=== PATIENT | female | born 1980 | race Caucasian/White ===

== ENCOUNTER 2018-01-22 06:02 | Observation (INO) | payer OTHER ==
[~2018-01-22 06:02] MED LIST: Buffered Lidocaine 0.9% SYRIN* 5 ML/SYR SYRINGE INTRADERM ONE; Dexamethasone TAB* 4 MG PO ONE; DiMENhydriNATE IV* 50 MG/ML VIAL IV PUSH PRN; Famotidine IV* 10 MG/ML 2 ML (20 mg) IV ONE; Gentamicin ADULT (*) 150 MG in NS 0.9% 100 ML* 100 ML IVPB SCH; Morphine INJ* 2 MG/ML 1 ML SYRINGE (TWO MG - NEW SYRINGE VERSION) IV PRN; Naloxone* 0.4 MG/ML 1 ML VIAL IV PRN; Ondansetron TAB* 4 MG PO ONE; PROCHLORPERAZINE INJ 5 MG/ML 2 ML VIAL IV PRN; Scopolamine 1.5 mg* PATCH TRANSDERM ONE; fentaNYL* 50 MCG/ML 2 ML VIAL (100 MCG VIAL) IV PRN; oxyCODONE/Acetamin 5/325 MG* TAB PO PRN
--- OUTSIDE RECORDS SUMMARY | 2018-01-22 06:06 | XMS REPORT ---
:1980 External Reference #:[id number] Author Organization [employer] Address [address] [place] [address] [place] [address] Phone [phone] Care Team Providers Name Role Phone Felix Christianson MD Primary Care Physician Unavailable Payers Type Date Identification Numbers Payment Provider Subscriber Commercial Effective: Policy Number: [id number] [employer] Celeste Munoz 2015 Medicaid Group Name: [id number] [address] [address] PayID: [id number] [place] [address] Medigap Part B Expires: 2015 Policy Number: [id number] Medicaid Celeste Munoz Group Name: 1 1 [address] PayID: [id number] [place] [address] Advance Directives Type Date Description Status Comment Other Directive 11/27/2017 Health Care Proxy Current and Verified Problems Date Description Provider Status Onset: 06/19/2015 Uterine leiomyoma Felix Christianson M.D.,FACP Active Onset: 06/19/2015 Hypothyroidism Felix Christianson M.D.,FACP Active Onset: 07/28/2015 Mixed hyperlipidemia Felix Christianson M.D.,FACP Active Onset: 08/18/2015 Dyssomnia Melonie Shah DNP, RN, Active 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 Onset: 08/18/2015 Snoring Melonie Shah DNP, RN, Active [employer]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 Onset: 08/18/2015 Periodic leg movements of sleep Melonie Shah DNP, RN, Active [employer]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 Quit 6 years ago. 2011 Recreational Drug Use Denies Drug Use Daily Caffeine Very rarely ; drinks water mostly Exercise Type/Frequency Exercises regularly General Hx Text 2 children Allergies, Adverse Reactions, Alerts Date Description Reaction Status Severity Comments 06/19/2015 Penicillin active hives, itchy, and trouble swallowing Medications Medication Date Status Form Strength Qnty SIG Indications Ordering Provider Lupron Depot 12/31 Active Kit 3.75mg 1unit one vial Daniel (1-Month) /2018 s intramuscular D. kim Cason M.D. Ferrous 11/25 Active Tablets 325(65Fe) 60tab take 1 tablet Delio Sulfate /2017 mg s twice daily. DEVON Herring Sumatriptan 11/10 Active Tablets 50mg 9tabs take one G43.109 Delio Succinate /2017 tablet at DEVON Herring onset of headache. if no relief you can take a second tab 2 hours later. no more than 4 times a month Wrist 02/12 Active Misc QS use on right G56.01 Zsofia Brace/Suede /2016 wrist at night Joe, Finish/Right/ [employer] PROCESSING SUPERVISOR Medium Wrist 07/27 Active Misc 1unit for carpal Felix Splint/Neopre /2016 s tunnel D. Meghan ne/Right/Larg syndrome Ewa.Nasreen,FACP e No Active 11/10 Hx Unknown Medications /2017 - 11/10 Diclofenac 01/07 Hx Solution 1.5% 150ml apply 15 drops M25.539 Zsofia Sodium to wrist 2x Joe, - daily as PHOS[employer] PROCESSING SUPERVISOR 11/10 needed for pain No Active 01/01 Hx Unknown Medications /2016 - 01/01 Diclofenac 01/01 Hx Gel 1% 100gm apply 1 grams M25.539 Zsofia Sodium on hands twice Joe, - daily [employer] PROCESSING SUPERVISOR 01/07 Miralax 07/27 Hx Powder 3350NF 510un 17 gm every its day mixed w/ 8 Nasreen Christianson, - oz water/juice M.Nasreen,[facility] 12/31 Fluticasone 07/27 Hx Suspension 50mcg/Act 16gm 1 spray each Felix Propionate nostril in in Nasreen Christianson, - the morning M.Nasreen,[facility] 12/31 Cetirizine 07/27 Hx Tablets 10mg 30tab 1 by mouth Felix HCL /2015 s every day prn Nasreen Christianson, - M.Nasreen,[facility] 12/[address] 20mg 30cap 1 by mouth K29.60 Felix s every day for Nasreen Christianson, - 1 month then Nati,[facility] 12/31 as directed Progesterone 00 Hx Capsules 100mg 1 by mouth Unknown Micronized /0000 every day - Nona 00 Hx Tablets 0.35mg Thien, /0000 Glenis, - 12/31 Nona 0000 Hx Tablets 0.35mg 1 by mouth Unknown /0000 every day - 12/30 Vital Signs Date Vital Result Comment 12/31/2017 Height 64 inches 5'4" Weight 226.00 lb Heart Rate 64 /min BP Systolic Sitting 138 mmHg lue lg cuff BP Diastolic Sitting 82 mmHg lue lg cuff BP Systolic Standing 140 mmHg BP Diastolic Standing 80 mmHg Respiratory Rate 16 /min BMI (Body Mass Index) 38.8 kg/m2 11/27/2017 Height 64 inches 5'4" Weight 225.00 lb Heart Rate 68 /min BP Systolic 128 mmHg BP Diastolic 87 mmHg Body Temperature 99.4 F O2 % BldC Oximetry 99 % BMI (Body Mass Index) 38.6 kg/m2 11/10/2017 Height 64 inches 5'4" Weight 229.75 lb Heart Rate 104 /min BP Systolic 120 mmHg BP Diastolic 74 mmHg Body Temperature 98.1 F O2 % BldC Oximetry 95 % BMI (Body Mass Index) 39.4 kg/m2 03/26/2017 Height 64 inches 5'4" Weight 225.50 lb Heart Rate 82 /min BP Systolic Sitting 138 mmHg BP Diastolic Sitting 80 mmHg Respiratory Rate 14 /min Body Temperature 97.6 F O2 % BldC Oximetry 98 % BMI (Body Mass Index) 38.7 kg/m2 02/12/2017 Height 64 inches 5'4" Weight 218.00 lb Heart Rate 83 /min BP Systolic Sitting 154 mmHg BP Diastolic Sitting 88 mmHg Body Temperature 97.5 F O2 % BldC Oximetry 98 % BMI (Body Mass Index) 37.4 kg/m2 01/01/2017 Height 64 inches 5'4" Weight 214.00 lb Heart Rate 72 /min BP Systolic Sitting 138 mmHg BP Diastolic Sitting 84 mmHg Respiratory Rate 14 /min Body Temperature 98.0 F Pain Level 9 bilateral wrist R>L BMI (Body Mass Index) 36.7 kg/m2 08/18/2015 Height 64 inches 5'4" Weight 216.38 lb Heart Rate 69 /min BP Systolic Sitting 136 mmHg BP Diastolic Sitting 78 mmHg O2 % BldC Oximetry 98 % BMI (Body Mass Index) 37.1 kg/m2 Neck Circumference in inches 15.25 07/28/2015 Height 62.5 inches 5'2.50" Weight 222.00 lb Heart Rate 98 /min BP Systolic Sitting 132 mmHg BP Diastolic Sitting 86 mmHg Body Temperature 97.2 F O2 % BldC Oximetry 97 % BMI (Body Mass Index) 40.0 kg/m2 07/19/2015 Height 62.5 inches 5'2.50" Weight 221.00 lb Heart Rate 104 /min BP Systolic Sitting 122 mmHg BP Diastolic Sitting 80 mmHg Body Temperature 97.3 F O2 % BldC Oximetry 96 % BMI (Body Mass Index) 39.8 kg/m2 06/19/2015 Height 62.5 inches 5'2.50" Weight 214.50 lb Heart Rate 120 /min Body Temperature 97.4 F O2 % BldC Oximetry 98 % BMI (Body Mass Index) 38.6 kg/m2 Results Test Date Test Result H/L Range Note Laboratory test 11/24/2017 Cytology SEE RESULT BELOW 1 finding CBC Auto Diff 11/14/2017 White Blood Count 6.5 10^3/uL 3.5-10.8 Red Blood Count 4.74 10^6/uL 4.00-5.40 Hemoglobin 10.1 g/dL Low 12.0-16.0 Hematocrit 33 % Low 35-47 Mean Corpuscular Volume 69 fL Low 80-97 Mean Corpuscular Hemoglobin 21 pg Low 27-31 Mean Corpuscular HGB Conc 31 g/dL 31-36 Red Cell Distribution Width 16 % High 10.5-15 Platelet Count 332 10^3/uL 150-450 Mean Platelet Volume 8.1 um3 7.4-10.4 Abs Neutrophils 3.7 10^3/uL 1.5-7.7 Abs Lymphocytes 2.1 10^3/uL 1.0-4.8 Abs Monocytes 0.5 10^3/uL 0-0.8 Abs Eosinophils 0.2 10^3/uL 0-0.6 Abs Basophils 0 10^3/uL 0-0.2 Abs Nucleated RBC 0 10^3/uL Granulocyte % 56.5 % 38-83 Lymphocyte % 32.7 % 25-47 Monocyte % 7.9 % High 0-7 Eosinophil % 2.4 % 0-6 Basophil % 0.5 % 0-2 Nucleated Red Blood Cells % 0 Comp Metabolic Panel 11/14/2017 Sodium 137 mmol/L 135-145 Potassium 4.4 mmol/L 3.5-5.0 Chloride 105 mmol/L 101-111 Co2 Carbon Dioxide 25 mmol/L 22-32 Anion Gap 7 mmol/L 2-11 Glucose 96 mg/dL 70-100 Blood Urea Nitrogen 9 mg/dL 6-24 Creatinine 0.66 mg/dL 0.51-0.95 BUN/Creatinine Ratio 13.6 8-20 Calcium 8.8 mg/dL 8.6-10.3 Total Protein 6.5 g/dL 6.4-8.9 Albumin 4.0 g/dL 3.2-5.2 Globulin 2.5 g/dL 2-4 Albumin/Globulin Ratio 1.6 1-3 Total Bilirubin 0.30 mg/dL 0.2-1.0 Alkaline Phosphatase 61 U/L 34-104 Alt 16 U/L 7-52 Ast 17 U/L 13-39 Egfr Non- 101.9 >60 Egfr 123.3 >60 2 Laboratory test finding 11/14/2017 Ferritin 4.0 ng/mL Low 11-307 Magnesium 2.0 mg/dL 1.9-2.7 TSH (Thyroid Stim Horm) 6.03 mcIU/mL High 0.34-5.60 Vitamin B12 310 pg/mL 180-914 3 D Dimer Quantitative < 200 ng/mL Less Than 230 4 Cell Morphology 11/14/2017 Microcytosis 2+ Hypochromasia 1+ Laboratory test finding 11/14/2017 Free T4 (Free Thyroxine) 0.72 ng/dL 0.61-1.12 T3 Total 104 ng/dL 87-178 Pathologist Review (SEE NOTE) 5 Iron & Iron Binding Capacity 11/14/2017 Iron 22 g/dL Low 50-212 Unsaturated Iron Binding 475 g/dL Total Iron Binding Capacity 497 g/dL High 250-450 Transferrin 355 mg/dL 203-362 % Iron Saturation 4 % Low 15-55 CBC Auto Diff 02/13/2017 White Blood Count 5.9 10^3/uL 3.5-10.8 Red Blood Count 4.61 10^6/uL 4.0-5.4 Hemoglobin 11.6 g/dL Low 12.0-16.0 Hematocrit 36 % 35-47 Mean Corpuscular Volume 78 fL Low 80-97 Mean Corpuscular Hemoglobin 25 pg Low 27-31 Mean Corpuscular HGB Conc 32 g/dL 31-36 Red Cell Distribution Width 16 % High 10.5-15 Platelet Count 297 10^3/uL 150-450 Mean Platelet Volume 8 um3 7.4-10.4 Abs Neutrophils 3.4 10^3/uL 1.5-7.7 Abs Lymphocytes 2.0 10^3/uL 1.0-4.8 Abs Monocytes 0.4 10^3/uL 0-0.8 Abs Eosinophils 0.2 10^3/uL 0-0.6 Abs Basophils 0 10^3/uL 0-0.2 Abs Nucleated RBC 0.01 10^3/uL Granulocyte % 57.3 % 38-83 Lymphocyte % 32.9 % 25-47 Monocyte % 6.7 % 1-9 Eosinophil % 2.7 % 0-6 Basophil % 0.4 % 0-2 Nucleated Red Blood Cells % 0.1 Laboratory test finding 02/13/2017 TSH (Thyroid Stim Horm) 3.48 mcIU/mL 0.34-5.60 6 Comp Metabolic Panel 02/13/2017 Sodium 136 mmol/L 133-145 Potassium 4.3 mmol/L 3.5-5.0 Chloride 104 mmol/L 101-111 Co2 Carbon Dioxide 27 mmol/L 22-32 Anion Gap 5 mmol/L 2-11 Glucose 89 mg/dL 70-100 Blood Urea Nitrogen 10 mg/dL 6-24 Creatinine 0.71 mg/dL 0.51-0.95 BUN/Creatinine Ratio 14.1 8-20 Calcium 8.9 mg/dL 8.6-10.3 Total Protein 6.7 g/dL 6.4-8.9 Albumin 3.9 g/dL 3.2-5.2 Globulin 2.8 g/dL 2-4 Albumin/Globulin Ratio 1.4 1-3 Total Bilirubin 0.30 mg/dL 0.2-1.0 Alkaline Phosphatase 49 U/L 34-104 Alt 17 U/L 7-52 Ast 19 U/L 13-39 Egfr Non- 93.7 >60 Egfr 120.5 >60 7 Lipid Profile (Trig/Chol/HDL) 02/13/2017 Triglycerides 175 mg/dL 8 Cholesterol 183 mg/dL 9 HDL Cholesterol 34.9 mg/dL 10 LDL Cholesterol 113 mg/dL 11 Laboratory test finding 06/21/2015 TSH (Thyroid Stimulating 3.23 ?IU/mL 0.34-5.60 12 Horm) Free T4 0.89 ng/dL 0.61-1.12 13 CBC Auto Diff 06/21/2015 White Blood Count 7.1 10^3/uL 3.5-10.8 Red Blood Count 4.97 10^6/uL 4.0-5.4 Hemoglobin 13.0 g/dL 12.0-16.0 Hematocrit 41 % 35-47 Mean Corpuscular Volume 82 fL 80-97 Mean Corpuscular Hemoglobin 26 pg Low 27-31 Mean Corpuscular HGB Conc 32 g/dL 31-36 Red Cell Distribution Width 16 % High 10.5-15 Platelet Count 295 10^3/uL 150-450 Mean Platelet Volume 8 um3 7.4-10.4 Abs Neutrophils 4.4 10^3/uL 1.5-7.7 Abs Lymphocytes 2.0 10^3/uL 1.0-4.8 Abs Monocytes 0.4 10^3/uL 0-0.8 Abs Eosinophils 0.2 10^3/uL 0-0.6 Abs Basophils 0 10^3/uL 0-0.2 Abs Nucleated RBC 0.01 10^3/uL Granulocyte % 62.2 % 38-83 Lymphocyte % 28.4 % 25-47 Monocyte % 5.9 % 1-9 Eosinophil % 3.1 % 0-6 Basophil % 0.4 % 0-2 Nucleated Red Blood Cells % 0.1 Basic Metabolic Panel 06/21/2015 Sodium 136 mmol/L 133-145 Potassium 4.4 mmol/L 3.5-5.0 Chloride 104 mmol/L 101-111 Co2 Carbon Dioxide 24 mmol/L 22-32 Anion Gap 8 mmol/L 2-11 Glucose 87 mg/dL 70-100 Blood Urea Nitrogen 7 mg/dL 6-24 Creatinine 0.79 mg/dL 0.51-0.95 BUN/Creatinine Ratio 8.9 8-20 Calcium 9.3 mg/dL 8.6-10.3 Egfr Non- 83.8 >60 Egfr 107.8 >60 14 Lipid Profile (Trig/Chol/HDL) 06/21/2015 Triglycerides 175 mg/dL 15 Cholesterol 216 mg/dL 16 HDL Cholesterol 29.9 mg/dL 17 LDL Cholesterol 151 mg/dL 18 1 SEE RESULT BELOW Name: CELESTE MUNOZ : [address]: Glenis Neumann MD Acct: [id number] Unit: [id number] AGE: 36 Location: [facility] Re11/24/17 SEX: F Status: REG REF SPEC: [id number] MARISOL: 11/24/17 [facility] DR: Glenis Neumann MD REQ: [id number] RECD: 11/24/17 STATUS: [facility] STEPHEN[facility] DR: Felix Christianson MD _ ORDERED: TP IMAGE ANALYS, HPV/Thin Prep COMMENTS: [id number] Negative for Intraepithelial lesion or Malignancy Date Time Test Result Flag (u) Normal Range 11/24/17 0928 @ HPV RNA Negative Negative @ @ The high-risk HPV types detected by the assay include: 16, @ 18, 31, 33, 35, 39, 45, 51, 52, 56, 58, 59, 66, and 68. A. Ectocervical/Endocervical Specimen Adequacy: Satisfactory of evaluation Transformation zone component identified Patient Information: HPV: High risk HPV RNA testing regardless of pap results. Actual Specimen Date: 11/24/17 Last Menstrual Date: 10/26/17 Date of Last Specimen: 05/03/15 Signed by and Reported on: ROZINA Bay(ASCP) [id number] This Pap test was evaluated with the assistance of the ThinPrep Test Imaging System. Due to cytologic findings at the rn discharge microscope, comprehensive manual rescreening by a Boat [employer] may be required. The Pap Smear is a screening test designed to aid in the detection of premalignant and malignant conditions of the uterine cervix. It is not a diagnostic procedure and should not be used as the sole means of detecting cervical cancer. Both false- positive and false- negative reports do occur. Depending on your risk status, a Pap smear should be obtained and evaluated every 1-3 years. END OF REPORT DEPARTMENT OF PATHOLOGY, [address] [place] [address] Vivek Escobar M.D. Director [facility] # [id number] 2 Because ethnic data is not always readily available, this report includes an eGFR for both -Americans and non- Americans. The National Kidney Disease Education Program (NKDEP) does not endorse the use of the MDRD equation for patients that are not between the ages of 18 and 70, are , have extremes of body size, muscle mass, or nutritional status, or are non- or non-. According to the National Kidney Foundation, irrespective of diagnosis, the stage of the disease is based on the level of kidney function: Stage Description GFR(mL/min/1.73 m(2)) 1 Kidney damage with normal or decreased GFR 90 2 Kidney damage with mild decrease in GFR 60-89 3 Moderate decrease in GFR 30-59 4 Severe decrease in GFR 15-29 5 Kidney failure <15 (or dialysis) 3 Normal Range 180 to 914 Indeterminate Range 145 to 180 Deficient Range <145 4 Please note: The following may produce a false positive D Dimer test: - Rheumatoid factor greater than 60 IU/ml - Plasma hemoglobin greater than 0.05 gm/dl - Bilirubin greater than 50 mg/dl - Lipids greater than 1000 mg/dl - FDP greater than 20 ug/ml 5 Microcytic anemia with red cell indices suggestive of iron deficiency noted. Additional studies is warranted. Reviewed by Dr. Escobar 6 FASTING 10 HOUR 7 Because ethnic data is not always readily available, this report includes an eGFR for both -Americans and non- Americans. The National Kidney Disease Education Program (NKDEP) does not endorse the use of the MDRD equation for patients that are not between the ages of 18 and 70, are , have extremes of body size, muscle mass, or nutritional status, or are non- or non-. According to the National Kidney Foundation, irrespective of diagnosis, the stage of the disease is based on the level of kidney function: Stage Description GFR(mL/min/1.73 m(2)) 1 Kidney damage with normal or decreased GFR 90 2 Kidney damage with mild decrease in GFR 60-89 3 Moderate decrease in GFR 30-59 4 Severe decrease in GFR 15-29 5 Kidney failure <15 (or dialysis) 8 Desirable: <150 Borderline High: 150-199 High: 200-499 Very High: >500 9 Desirable: <200 Borderline High: 200-239 High: >239 10 Low: <40 Desirable: 40-60 High: >60 11 Desirable: <100 Near Optimal: 100-129 Borderline High: 130-159 High: 160-189 Very High: >189 12 FASTING 10 HOUR Copy Result to: GLENIS NEUMANN ([id number]) 13 FASTING 10 HOUR Copy Result to: GLENIS NEUMANN ([id number]) 14 Because ethnic data is not always readily available, this report includes an eGFR for both -Americans and non- Americans. The National Kidney Disease Education Program (NKDEP) does not endorse the use of the MDRD equation for patients that are not between the ages of 18 and 70, are , have extremes of body size, muscle mass, or nutritional status, or are non- or non-. According to the National Kidney Foundation, irrespective of diagnosis, the stage of the disease is based on the level of kidney function: Stage Description GFR(mL/min/1.73 m(2)) 1 Kidney damage with normal or decreased GFR 90 2 Kidney damage with mild decrease in GFR 60-89 3 Moderate decrease in GFR 30-59 4 Severe decrease in GFR 15-29 5 Kidney failure <15 (or dialysis) 15 Desirable <150 Borderline high 150-199 High 200-499 Very High >500 16 Desirable <200 Borderline high 200-239 High >239 17 Low <40 Desirable: 40-60 High: >60 18 Desirable: <100 mg/dL Near Optimal: 100-129 mg/dL Borderline High: 130-159 mg/dL High: 160-189 mg/dL Very High: >189 mg/dL Procedures Date CPT Code Description Status 12/31/2017 49610 EKG Tracing & Interpretation Completed 11/10/2017 82162 EKG Tracing & Interpretation Completed Encounters Type Date Location Provider CPT E/M Dx Office Visit 12/31/2017 [facility] Daniel Cason, [address] R07.9 10:00a Jason Damian R00.2 Office Visit 11/27/2017 9:20a [facility] [place] [address] D50.9 [place] R07.9 E53.8 Office Visit 11/10/2017 4:00p [facility] [place] [address] G43.109 [place] R25.2 R07.9 Office Visit 03/26/2017 10:00a [facility] Internal Medicine - [place] Diaz, [place] [address] M25.531 Office Visit 02/12/2017 9:40a [facility] Medicine Tem[place] Diaz, [place] [address] Z00.01 - [address] Z13.220 R53.83 N92.0 G56.01 M54.5 E66.9 Z00.00 Office Visit 01/01/2017 2:20p [facility] Medicine [place] [address] M25.[address] - [address] M54.2 M25.511 G56.00 M25.531 Office Visit 08/18/2015 11:15a [facility] Melonie Shah, [address] G47.9 Services Of [facility] CHELE RN, 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 at [facility]01/13/2018 9:00 am - Nurse Visit IC at [facility]01/12/2018 9:00 am - Nurse Visit IC at [facility]01/09/2018 8 :15 am - Daniel Cason M.D. at [facility]01/09/2018 7:45 am - Ica ECHO Schedule at [facility]12/31/2017 - Daniel Cason M.D.R07.9 Chest pain, unspecifiedNew Orders:Stress Test, Exercise EchocardiogramHolter MonitorFollow up:1 empdmO01.2 Palpitations
--- OUTSIDE RECORDS SUMMARY | 2018-01-22 06:06 | XMS REPORT ---
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 [facility] Address [address] [place] [address] Phone [phone] Care Team Providers Name Role Phone Apollo Christianson MD Primary Care Physician Unavailable Payers Type Date Identification Numbers Payment Provider Subscriber Commercial Policy Number: [id number] [facility] Celeste Santiago PayID: [id number] [address] [address] [place] [address] Problems Description No Information Family History Date Family Member(s) Problem(s) Comments Father Unknown Mother Thyroid Disease Mother Anxiety Children 2 First Son A&W First Daughter A&W Siblings 1 First Brother A&W Paternal Grandfather due to Unknown Causes () Paternal Grandmother due to Unknown Causes () Maternal Grandfather Heart Disease Maternal Grandmother due to Unknown Causes () Social History Type Date Description Comments Education Highest level completed, 9th grade Marital Status Engaged Lives With Son Lives With Daughter Lives With Fiance Diet Healthy, Well Balanced Occupation Unemployed Cigarette Use Former Cigarette Smoker 1-5 Cigarettes Daily X5 years ETOH Use Occasionally consumes alcohol Recreational Drug Use Denies Drug Use Smoking Patient is a former smoker Daily Caffeine Occ Coffee Exercise Type/Frequency Exercises regularly Seat Belt/Car Seat Always uses seat belt Currently Active Patient is currently sexually active Contraceptive Methods Current methods include tubal ligation STD's No STD History Allergies, Adverse Reactions, Alerts Date Description Reaction Status Severity Comments 05/03/2015 Penicillin active Medications Medication Date Status Form Strength Qnty SIG Indications Ordering Provider Lupron Depot 12/15/ Active Kit 11.25mg 1unit please Glenis (3-Month) 2018 s adminster shannan Neumann MD every 3 months. Iron / Active Tablets 325mg Unknown 0000 Vitamin B-12 / Active Tablets 500mcg Unknown 0000 Sub Stool / Active Capsules 100mg Unknown Softener 0000 No Active 11/24/ Hx Glenis Medications 2018 - Thien, 2017 Nona 11/24/ Hx Tablets 0.35mg 84tab 1 by mouth Glenis 2018 - s every day Thien 2017 Oxybutynin 03/20/ Hx Tablets ER 5mg 60tab 1 po daily Glenis Chloride ER 2015 - 24HR s Thien, 2016 No Active 05/03/ Hx Unknown Medications 2015 - 2015 Nona 05/03/ Hx Tablets 0.35mg 84tab Take 1 Tablet Glenis 2015 - By Mouth 1 Thien, 11/19/ Time Daily 2017 Omeprazole / Hx 20mg Unknown 0000 - 2016 Flonase / Hx Unknown Allergy 0000 - Relief 2016 Medications Administered in Office Medication Date Status Form Strength Qnty SIG Indications Ordering Provider PT SCRN Tbco Administered Injection Gelnis Id as Non User 018 MD Thien PT SCRN Tbco Administered Injection Glenis Id as Non User 018 MD Thien Immunizations CPT Code Status Date Vaccine Lot # [id number] Given 06/16/2015 Tetnus, Diptheria Toxoids And Acellular Pertussis, [id number] PT > 7Yrs Old Vital Signs Date Vital Result Comment 01/12/2018 BP Systolic 146 mmHg BP Diastolic 94 mmHg Heart Rate 72 /min Respiratory Rate 1 /min Height 62.5 inches 5'2.50" Weight 228.00 lb BMI (Body Mass Index) 41.0 kg/m2 Last Menstrual Period 6426084 5 Parity 2 12/09/2017 BP Systolic 138 mmHg BP Diastolic 92 mmHg Height 62.5 inches 5'2.50" Weight 226.00 lb BMI (Body Mass Index) 40.7 kg/m2 Last Menstrual Period 3743747 5 Parity 2 11/24/2017 BP Systolic 122 mmHg BP Diastolic 86 mmHg Height 62.5 inches 5'2.50" Weight 226.00 lb BMI (Body Mass Index) 40.7 kg/m2 Last Menstrual Period 5744101 5 Parity 2 07/12/2016 BP Systolic 140 mmHg BP Diastolic 90 mmHg Height 64 inches 5'4" Weight 205.00 lb BMI (Body Mass Index) 35.2 kg/m2 Last Menstrual Period 7215689 5 Parity 2 06/18/2016 BP Systolic 138 mmHg BP Diastolic 80 mmHg Height 64 inches 5'4" Weight 203.00 lb BMI (Body Mass Index) 34.8 kg/m2 Last Menstrual Period 6774426 5 Parity 2 05/28/2016 BP Systolic 126 mmHg BP Diastolic 80 mmHg Height 64 inches 5'4" Weight 207.00 lb BMI (Body Mass Index) 35.5 kg/m2 5 Parity 2 03/20/2016 BP Systolic 124 mmHg BP Diastolic 80 mmHg Height 64 inches 5'4" Weight 205.00 lb BMI (Body Mass Index) 35.2 kg/m2 Last Menstrual Period 6628325 5 Parity 2 09/04/2015 BP Systolic 122 mmHg BP Diastolic 76 mmHg Height 64 inches 5'4" Weight 216.00 lb BMI (Body Mass Index) 37.1 kg/m2 Last Menstrual Period 4452927 5 Parity 2 07/27/2015 BP Systolic 124 mmHg BP Diastolic 78 mmHg Height 64 inches 5'4" Weight 221.00 lb BMI (Body Mass Index) 37.9 kg/m2 Last Menstrual Period 2450852 5 Parity 2 06/29/2015 BP Systolic 148 mmHg BP Diastolic 92 mmHg Height 64 inches 5'4" Weight 221.00 lb BMI (Body Mass Index) 37.9 kg/m2 Last Menstrual Period 4131968 5 Parity 2 06/16/2015 BP Systolic 124 mmHg BP Diastolic 82 mmHg Height 64 inches 5'4" Weight 225.00 lb BMI (Body Mass Index) 38.6 kg/m2 Last Menstrual Period 9003600 5 Parity 2 05/03/2015 BP Systolic 122 mmHg BP Diastolic 84 mmHg Height 64 inches 5'4" Weight 219.00 lb BMI (Body Mass Index) 37.6 kg/m2 Last Menstrual Period 5855968 5 Parity 2 Results Test Date Test Result H/L Range Note Type And Screen 01/09/2018 Patient Blood Type A Positive Antibody Screen NEGATIVE CBC Auto Diff 01/09/2018 White Blood Count 7.8 10^3/uL 3.5-10.8 Red Blood Count 4.98 10^6/uL 4.00-5.40 Hemoglobin 13.0 g/dL 12.0-16.0 Hematocrit 40 % 35-47 Mean Corpuscular Volume 79 fL Low 80-97 Mean Corpuscular Hemoglobin 26 pg Low 27-31 Mean Corpuscular HGB Conc 33 g/dL 31-36 Red Cell Distribution Width 25 % High 10.5-15 Platelet Count 281 10^3/uL 150-450 Mean Platelet Volume 8.6 um3 7.4-10.4 Abs Neutrophils 4.6 10^3/uL 1.5-7.7 Abs Lymphocytes 2.5 10^3/uL 1.0-4.8 Abs Monocytes 0.5 10^3/uL 0-0.8 Abs Eosinophils 0.2 10^3/uL 0-0.6 Abs Basophils 0 10^3/uL 0-0.2 Abs Nucleated RBC 0 10^3/uL Granulocyte % 59.0 % 38-83 Lymphocyte % 31.6 % 25-47 Monocyte % 6.1 % 0-7 Eosinophil % 3.1 % 0-6 Basophil % 0.2 % 0-2 Nucleated Red Blood Cells % 0.1 Laboratory test 11/24/2017 Cytology SEE RESULT BELOW 1 finding GC/Chlamydia Dna 06/29/2015 Chlamydia trachomatis Negative Negative Probe Rna Neisseria gonorrhoeae (GC) Rna Negative Negative Laboratory test 06/29/2015 Culture Genital & SEE RESULT BELOW 2 finding Sensitivity CBC Auto Diff 06/21/2015 White Blood Count [...] Egfr Non- 83.8 >60 Egfr 107.8 >60 3 Lipid Profile (Trig/Chol/HDL) 06/21/2015 Triglycerides 175 mg/dL 4 Cholesterol 216 mg/dL 5 HDL Cholesterol 29.9 mg/dL 6 LDL Cholesterol 151 mg/dL 7 Laboratory test finding 06/21/2015 TSH (Thyroid Stimulating 3.23 ?IU/mL 0.34-5.60 8 Horm) Free T4 0.89 ng/dL 0.61-1.12 9 Laboratory test finding 05/03/2015 Surgical Pathology SEE RESULT BELOW 10 Laboratory test finding 05/03/2015 Cytology SEE RESULT BELOW 11 Human Papilloma Virus Rna Negative Negative 12 1 SEE RESULT BELOW Name: SIOBHANMeleCELESTE M : [address]: Glenis Neumann MD Acct: [id number] Unit: [id number] AGE: 36 Location: [facility] Re11/24/17 SEX: F Status: REG REF SPEC: [id number] MARISOL: 11/24/[address]: Glenis Neumann MD REQ: [id number] RECD: 11/24/17 STATUS: BENTON STEPHENSON DR: Felix Christianson MD _ ORDERED: TP IMAGE ANALYS, HPV/Thin Prep COMMENTS: [id number] Negative for Intraepithelial lesion or Malignancy Date [...] was evaluated with the assistance of the OnovativePrep Test Imaging System. Due to cytologic findings at the radiotelegraphist microscope, comprehensive manual rescreening by a Remedial Teacher may be required. The Pap Smear is [...] years. END OF REPORT DEPARTMENT OF PATHOLOGY, [address] [place] [address] Vivek Escobar M.D. Director [facility] # [id number] 2 SEE RESULT BELOW Name: CELESTE MUNOZ : [address]: Glenis Neumann MD Acct: [id number] Unit: [id number] AGE: 34 Location: [facility] Re06/29/15 SEX: F Status: REG REF SPEC: [id number] MARISOL: 06/29/15-[address] [facility] [address]: Glenis Neumann MD REQ: [id number] RECD: 06/29/15 STATUS: COMP _ SOURCE: VAGINAL SPDESC: ORDERED: Genital Culture Procedure Result Reported Site Genital Culture Final 07/01/15- 1329 ML Organism 1 PHILIP VAGINALIS - PRESUMPTIVE Quantity 2+ Organism 2 STREP GROUP B Quantity 1+ Susceptibility testing of penicillins and other B-lactams approved by FDA for treatment of Streptococcus pyogenes (Group A Strep) and Streptococcus agalactiae (Group B Strep) is not necessary for clinical purposes and need not be done routinely, since as with vancomycin, resistant strains have not been recognized. (CLSI M982-Q01;p.66) Positive isolates will be saved for one week. Please call the Microbiology Laboratory if further susceptibility testing is needed. * ML - MAIN LAB ([facility]) . END OF REPORT * ML=Testing performed at Main Lab DEPARTMENT OF PATHOLOGY, [address] [place] [address] Vivek Escobar M.D. Director [facility] # [id number] 3 Because ethnic data is not always readily [...] 15-29 5 Kidney failure <15 (or dialysis) 4 Desirable <150 Borderline high 150-199 High 200-499 Very High >500 5 Desirable <200 Borderline high 200-239 High >239 6 Low <40 Desirable: 40-60 High: >60 7 Desirable: <100 mg/dL Near Optimal: 100-129 mg/dL Borderline High: 130-159 mg/dL High: 160-189 mg/dL Very High: >189 mg/dL 8 FASTING 10 HOUR Copy Result to: GLENIS NEUMANN ([id number]) 9 FASTING 10 HOUR Copy Result to: GLENIS NEUMANN ([id number]) 10 SEE RESULT BELOW Name: CELESTE MUNOZ : [address]: Glenis Neumann MD Acct: [id number] Unit: [id number] AGE: 34 Location: [facility] Re05/03/15 SEX: F Status: REG REF SPEC: [id number] MARISOL: 05/03/15-[address]: Glenis Neumann MD REQ: [id number] RECD: 05/03/15-1737 STATUS: SOUT _ ORDERED: LEVEL IV FINAL DIAGNOSIS Uterus, endometrium, biopsy: -- Proliferative endometrium with focal tubal metaplasia. -- No evidence of hyperplasia or neoplasia. PRE-OPERATIVE DIAGNOSIS Dysfunctional uterine bleeding GROSS DESCRIPTION The specimen is received in formalin with no source identified and a requisition labeled, Endometrial Biopsy, and consists of a 2.5 x 1.6 x 0.4 cm aggregate of red- brown blood clot admixed with sky irregular soft tissue fragments. The specimen is filtered and submitted entirely in one cassette. Signed (signature on file) Xiao Katz MD [id number] END OF REPORT * ML=Testing performed at Main Lab DEPARTMENT OF PATHOLOGY, [address] [place] [address] Vivek Escobar M.D. Director [facility] # [id number] 11 SEE RESULT BELOW Name: CELESTE MUNOZ : [address]: Glenis Neumann MD Acct: [id number] Unit: [id number] AGE: 34 Location: [facility] Re05/03/15 SEX: F Status: REG REF SPEC: [id number] MARISOL: 05/03/15-13[address] [facility] [address]: Glenis Neumann MD REQ: [id number] RECD: 05/03/15835 STATUS: SOUT _ ORDERED: IMAGE ANALYSIS, HPV/Thin Prep FINAL DIAGNOSIS Negative for Intraepithelial lesion or Malignancy A. Ectocervical/Endocervical Specimen Adequacy: Satisfactory of evaluation Transformation zone component identified Predominance of red blood cells Scanty epithelial component Patient Information: HPV: High risk HPV RNA testing regardless of pap results. Actual Specimen Date: 05/03/15 Last Menstrual Date: 05/08/14 Spec Date if unknown: unknown Date Time Test Result Flag (u) Normal Range 05/03/15 1320 HPV RNA Negative Negative The high-risk HPV types detected by the assay include: 16, 18, 31, 33, 35, 39, 45, 51, 52, 56, 58, 59, 66, and 68. Signed (signature on file) ROZINA Bay(ASCP) 05/04 1407 This Pap test was evaluated with the assistance of the OnovativePrep Test Imaging System. Due to cytologic findings at the radiotelegraphist microscope, comprehensive manual rescreening by a Remedial Teacher may be required. The Pap Smear is [...] evaluated every 1-3 years. END OF REPORT * ML=Testing performed at Main Lab DEPARTMENT OF PATHOLOGY, [address] [place] [address] Vivek Escobar M.D. Director [facility] # [id number] 12 The high-risk HPV types detected by the assay include: 16, 18, 31, 33, 35, 39, 45, 51, 52, 56, 58, 59, 66, and 68. Procedures Date CPT Code Description Status 01/09/2018 96632 Injection Intramuscular Or Subcutaneous Completed 12/09/2017 92718 Echography Transvaginal Completed 06/18/2016 15874 Echography Transvaginal Completed 03/20/2016 53698 Echography Transvaginal Completed 09/04/2015 51306 Echography Transvaginal Completed 06/16/2015 47155 Injection Intramuscular Or Subcutaneous Completed 05/03/2015 81250 Biopsy Endometrial W/O Cervical Dilation Completed Encounters Type Date Location Provider CPT E/M Dx Office Visit 01/12/2018 3:30p [place] [address] D25.0 Office Visit 12/09/2017 9:00a [place] [address] D25.9 Office Visit 11/24/2017 9:00a [place] [address] Z01.411 Z12.4 Office Visit 07/12/2016 10:00a [place] [address] N94.6 Office Visit 06/18/2016 3:30p [place] [address] N94.6 Office Visit 05/28/2016 10:40a [place] [address] D25.9 Office Visit 03/20/2016 2:00p [place] [address] D25.9 Office Visit 09/04/2015 1:30p [place] [address] D25.9 Office Visit 07/27/2015 1:30p [place] [address] N94.5 Office Visit 06/29/2015 11:00a [place] [address] N94.5 D25.9 Office Visit 06/16/2015 1:00p [place] [address] N92.6 E66.9 Office Visit 05/03/2015 11:00a [place] [address] N94.5 D25.9 N92.6 Plan of Care Future Appointment(s):02/18/2018 3:30 pm - Glenis Neumann MD at [facility]8601/29/2018 3:00 pm - RN at [facility]01/22/2018 7:30 am - Rory Lynne MD at [facility] O R1 7:30 am - Glenis Neumann MD at [facility] O R001/12/2018 - Glenis Neumann, MDD25.0 Submucous leiomyoma of uterusComments:Pt with enlarged uterus and enlarged fibroid with submucosa extension resulting in menorrhagia. Pt declines consult for laparoscopic hysterectomy and desires to proceed with abdominal supracervical hysterectomy along with bilateral salpingectomy as this might be associated with decrease in risk of ovarian cancer. Pt is aware of risk associated with surgery to include but not limited to infection, bleeding, damage to internal organs, pain ,scarring, need for further surgery and small risk that fibroid could be cancerous. Consent form personally reviewed and signed with patient.
[2018-01-22] MEDS ORDERED: Bupivacaine 0.5% SDV PF* 30ML VIAL ONE (06:44)
[2018-01-22] MEDS ORDERED: Bupivacaine 0.25% EPI 200,000* 30 ML SDV ONE (06:45)
[2018-01-22] MEDS ORDERED: Scopolamine 1.5 mg* PATCH ONE (06:48)
[2018-01-22] MEDS ORDERED: Ondansetron ODT TAB* 4 MG ONE (06:48)
[2018-01-22] MEDS ORDERED: Famotidine IV* 10 MG/ML 2 ML (20 mg) ONE (06:48)
[2018-01-22] MEDS ORDERED: Clindamycin 900 MG/D5W BAG(*) 900 MG/50 ML BAG IVPB ONE (06:48)
[2018-01-22] MEDS ORDERED: Dexamethasone TAB* 4 MG ONE (06:48)
[2018-01-22] MEDS ORDERED: KETAMINE HCL* 50 MG/ML 10 ML VIAL ONE (07:13)
[2018-01-22] MEDS ORDERED: fentaNYL* 50 MCG/ML 2 ML VIAL (100 MCG VIAL) ONE (07:13)
[2018-01-22] MEDS ORDERED: Midazolam* 1 MG/ML 5 ML VIAL (5 MG) ONE (07:13)
[2018-01-22] MEDS ORDERED: PROCHLORPERAZINE INJ 5 MG/ML 2 ML VIAL ONE (09:29)
[2018-01-22] MEDS ORDERED: Propofol* 1,000 MG/100 ML BTL ONE (09:29)
[2018-01-22] MEDS ORDERED: Ketorolac INJ* 30 MG/ML 1 ML VIAL ONE (09:29)
[2018-01-22] MEDS ORDERED: oxyCODONE/Acetamin 5/325 MG* TAB ONE (13:18)
[2018-01-22] MEDS ORDERED: oxyCODONE/Acetamin 5/325 MG* TAB PO PRN ×2 (14:17)
[2018-01-22] MEDS ORDERED: PROCHLORPERAZINE INJ 5 MG/ML 2 ML VIAL IV PRN (14:18)
[2018-01-22] MEDS ORDERED: LR @ 40 MLS/HR IV SCH (16:00)
[2018-01-22] MEDS: Ibuprofen TAB* 600 MG PO SCH ×2 (16:29→21:19)
[2018-01-22] MEDS ORDERED: Benzocaine/Menthol LOZ* 1 LOZENGE PO PRN (20:03)
[2018-01-23] MEDS: Ibuprofen TAB* 600 MG PO SCH ×2 (04:13→10:14)
[2018-01-23 05:57] LABS: Hematocrit 37 % (35-47); Hemoglobin 12.3 g/dl (12.0-16.0); Mean Corpuscular HGB Conc 33 g/dl (31-36); Mean Corpuscular Hemoglobin 27 pg (27-31); Mean Corpuscular Volume 80 fL (80-97); Mean Platelet Volume 8.5 um3 (7.4-10.4); Platelet Count 265 10^3/ul (150-450); Red Blood Count 4.61 10^6/ul (4.00-5.40); Red Cell Distribution Width 22 % (10.5-15); White Blood Count 14.1 10^3/ul (3.5-10.8)
--- NOTE | 2018-01-23 07:03 | OP ---
DATE OF OPERATION: 01/22/18 - ROOM #342 DATE OF : [birth year] SURGEON: Glenis Neumann MD SENIOR FINANCIAL REPORTING ACCOUNTANT: Rory Lynne MD ANESTHESIA: Spinal with sedation and local at incision. PRE-OP DIAGNOSES: 1. Menorrhagia. 2. Fibroid uterus. POST-OP DIAGNOSES: 1. Menorrhagia. 2. Fibroid uterus. OPERATIVE PROCEDURE: Supracervical hysterectomy and bilateral salpingectomy. URINE OUTPUT: 900 cc of clear yellow urine. ESTIMATED BLOOD LOSS: 200 cc. FLUIDS: 2000 cc of crystalloid. FINDINGS: Revealed 14 to 15 week size fibroid uterus, normal-appearing ovaries bilaterally, some adhesions on the left fallopian tube to the ovary. Normally palpated bowel. COMPLICATIONS: None apparent. DISPOSITION: Stable to recovery room. DESCRIPTION OF PROCEDURE: The patient was placed in dorsal lithotomy position. The abdomen was prepped and draped in a sterile standard fashion after Pérez was placed. The patient was identified with the universal protocol, identifying correct, position, and procedure. 0.25% Marcaine was then injected 2 fingerbreadths above the pubic symphysis along the incision line. Incision was then made with scalpel. This was carried down through to the fascia. Fascia was scored in the midline and the fascia was extended laterally and superiorly using curved Cortes scissors and the fascia was then through blunt and sharp dissection from the rectus muscle and the midline was then entered bluntly. The peritoneal incision was extended superiorly and inferiorly all directly visualizing bowel and bladder. The uterus was palpated. Bowel was palpated. At that point, the bowel was packed off using 3 moist laparotomy sponge. A curved [place] was inserted anteriorly. The uterus was grasped with long Gisele across the ovarian and broad ligament. This was done bilaterally. The round ligament was identified first on the right, clamped with Gisele, transected using Bovie coagulation and suture ligated using 0 Vicryl. The window in the broad ligament was identified. Yovani clamp was placed x2, transected and then suture ligated first with 0 Vicryl and a free tie and then suture ligated in a Yovani fashion using 0 Vicryl. Hemostasis was noted. At that point, the left side of the uterus was approached. The left round ligament was clamped with Gisele, transected sharply with Bovie coagulation and then suture ligated using 0 Vicryl x2 for complete occlusion of the left round ligament. There are some adhesions noted across the left broad ligament involving fallopian tube and ovary. The window was identified and the broad ligament clamped x2 with Gisele, transected sharply and then ligated using first 0 free tie and then a 0 Vicryl in a Yovani fashion. Hemostasis was assured. The left ovarian ligament was noted to be not incorporated on the left broad ligament and so this was clamped x2 with Yovani, transected sharply and then ligated using 0 free tie and 0 LigaSure suture in a Yovani fashion for complete occlusion of the ovarian ligament. The uterine artery was then skeletonized, clamped first on the left side in a Yovani fashion, back clamped with Meryl, transected sharply and then suture ligated using 0 Vicryl x2. Hemostasis was noted. At that point, the uterus was noted to be blanching. The large fibroids coming up the posterior aspect of the uterus was noted to be blanching. The right uterine artery was then skeletonized, clamped with Yovani x2 and suture ligated using 0 Vicryl x2 for complete occlusion of both right and left uterine arteries. Yovani-Kwame was placed to upper portion of the junction of the cervix and the uterus, transected sharply with scalpel, first performed on the right and then suture ligated using 0 Vicryl. This process was repeated on the left. At this point, the uterus was then transected using Bovie coagulation. Uterus was from the cervical stump with placement of the hand posterior to the Bovie to assure bowel was free from dissection site. Uterus was removed in total and the cervical stump was clamped with Kochers. The endocervical canal was cauterized. [place] sutures were placed with reapproximation of the anterior posterior cervical wall in a bdmdee-le-fhdho fashion. This was done anterior posterior for x5 [id number] sutures for complete obliteration of the exposed cervical stump. There was some oozing noted on the left round ligament. This was clamped with a right angle and then suture ligated using 0 Vicryl for complete hemostasis and there was some oozing noted from the left broad ligament pedicle. This was clamped with right angle and then suture ligated using 0 Vicryl for complete hemostasis. Copious lavage was performed. At that point, the fimbriae were identified. There were some adhesions taken down from the left fimbria and ovary and distal portion of the tube, which is all the remained of the tube was clamped with Yovani, transected off the pedicle and then the pedicle was ligated using a 0 Vicryl and then a 2-0 Vicryl in a Yovani fashion. This process was repeated on the right and these were sent. Both bilateral distal tubes were sent with the uterus. Again, copious lavage was performed and the ureter was palpated and noted to be mobile and nondilated on both right and left pelvic side wall x3. Moist laparotomy sponges were removed. Hemostasis was assured in all the pedicles and the peritoneum was then clamped with Gisele x3. The peritoneum was reapproximated using 3-0 Vicryl in a running fashion. The subfascial area was visualized, hemostasis assured and the fascia was reapproximated using 0 Vicryl x2 in a running fashion. Subcu was lavaged and the Camper's fascia was reapproximated using a 2-0 Vicryl in an interrupted fashion for complete closure of the space. The skin was then reapproximated with a 4-0 Monocryl in a subcuticular fashion. All sponge, needle, instrument, and blade counts were correct throughout the case. The patient tolerated the procedure well and went to the recovery room in stable condition. [id number]/[facility] #: [id number] QUINTIN
[2018-01-23] MEDS ORDERED: Docusate CAP* 100 MG PO SCH (09:00)
[2018-01-23 12:09] VITALS: BP 137/76
[2018-01-25] MEDS ORDERED: Scopolamine PATCH Remove* 1 NOTE MISC PATCH OFF ONE (06:00)
== END 2018-01-23 14:05 | disposition home or self-care (01) ==
LOC: INTOOBSV 06:02 → AA 06:02 → SSU 13:03
PROVIDERS: ADMIT Obstetrics & Gynecology; ATTEND Obstetrics & Gynecology
PROC: 0UT70ZZ Resection of Bilateral Fallopian Tubes, Open Approach (ICD-10-PCS; 2018-01-22)
PROC: 0UT90ZL Resection of Uterus, Supracervical, Open Approach (ICD-10-PCS; principal; 2018-01-22 07:30)
DX: D25.0 Submucous leiomyoma of uterus (principal); N92.0 Excessive and frequent menstruation with regular cycle
CPT/HCPCS: 36415; 85027; 88307; A9270-GY; G0378; J0780; J1580; J1885; J2250; J2704; J3010; J8540

== ENCOUNTER 2018-11-26 15:28 | Emergency (ER) | payer OTHER ==
--- OUTSIDE RECORDS SUMMARY | 2018-11-26 15:33 | XMS REPORT | Continuity of Care Document ---
:1980 External Reference #:[id number] Author Name Prashanthjose Jessica Care Team Providers Name Role Phone Felix Christianson MD Primary Care Physician Unavailable Payers Date Identification Numbers Payment Provider Subscriber Effective: Policy Number: [id number] [employer] Celeste Abreu 2015 Medicaid Group Name: [id number] [address] [address] PayID: [id number] [place] [address] Expires: 2015 Policy Number: [id number] Medicaid Celeste Abreu Group Name: 1 1 [address] PayID: [id number] [place] [address] Advance Directives Type Date Description Status Comment Other Directive 11/27/2017 Health Care Proxy Current and Verified Problems Active Problems Provider Date Uterine leiomyoma Felix Christianson M.D.,FACP Onset: 06/19/2015 Hypothyroidism Felix Christianson M.D.,FACP Onset: 06/19/2015 Mixed hyperlipidemia Felix Christianson M.D.,FACP Onset: 07/28/2015 Dyssomnia Melonie Shah DNP, RN, FORENSIC SCIENCE TECHNICIAN-BC Onset: 08/18/2015 Snoring Melonie Shah DNP, RN, FORENSIC SCIENCE TECHNICIAN-BC Onset: 08/18/2015 Periodic leg movements of sleep Melonie Shah DNP, RN, FORENSIC SCIENCE TECHNICIAN-BC Onset: 08/17 Family History Date Family Member(s) Observation Comments General Heart Disease General Diabetes Father Unknown Mother Several medical issues - pt not She thinks her mother may have sure what sleep issues Siblings 1 First Brother Mental Illness NOS Maternal Uncles Diabetes Type II Social History Type Date Description Comments Sex Unknown Marital Status Significant Other Lives With Family Occupation Unemployed Cigarette Use Quit - Age 31 ETOH Use 06/19/2015 Rarely consumes alcohol Tobacco Use Start: Unknown End: Patient is a former 1 pack every 4 days Unknown smoker X 5 years. Quit 6 years ago. 2011 Recreational Drug Use Denies Drug Use Smoking Status Reviewed: 11/13/18 Patient is a former 1 pack every 4 days smoker X 5 years. Quit 6 years ago. 2011 Exercise Type/Frequency Exercises regularly Allergies, Adverse Reactions, Alerts Active Allergies Reaction Severity Comments Date Penicillin hives, itchy, and trouble swallowing 06/19/2015 Medications Active Medications SIG Qnty Indications Ordering Date Provider Seroquel take 1 by mouth at 60tabs G47.00 Delio Herring NP 11/13/2018 25mg Tablets bedtime. If not effective for sleep increase to two tablets after a week. Fluticasone 2 sprays each 16gm J30.89 Delio Herring NP 11/13/2018 Propionate nostril qd. 50mcg/Act Suspension Triamcinolone apply twice daily 45gm Delio Herring NP 11/13/2018 Acetonide to the affected 0.5% Cream area Sumatriptan Succinate Please See 9tabs G43.109 Delio Herring NP 04/07/2018 Attached For 100mg Tablets Detailed Directions Claritin 1 by mouth every 30tabs J30.89 Delio Herring NP 04/07/2018 10mg Tablets day History Medications No Active Unknown 04/07/2018 - Medications 04/07/2018 Seroquel take 1 by mouth at 60tabs G47.00 Delio Herring NP 04/07/2018 - 25mg bedtime. If not 04/07/2018 Tablets effective for sleep increase to two tablets after a week. Trazodone HCL 1-2 tablets at 60tabs G47.00 Delio Herring NP 04/07/2018 - 50mg bedtime as needed. 11/13/2018 Tablets Lupron Depot one vial uma Downey 12/31/2017 - (1-Month) intramuscular kim Cason M.D. 04/07/2018 3.75mg Kit Ferrous Sulfate take 1 tablet twice 60tabs Delio Herring NP 11/25/2017 - daily. 04/07/2018 325(65Fe) mg Tablets No Active Unknown 11/10/2017 - Medications 11/10/2017 Sumatriptan take one tablet at 9tabs G43.109 Delio Herring NP 11/10/2017 - Succinate onset of headache. 04/07/2018 50mg if no relief you can Tablets take a second tab 2 hours later. no more than 4 times a month Wrist Brace/Suede use on right wrist QS G56.01 Temo Diaz, 02/12/2017 - Finish/Right/Medium at night FORENSIC SCIENCE TECHNICIAN 04/07/2018 Mis Diclofenac Sodium apply 15 drops to 150ml M25.539 Frediofia Joe, 2016 - wrist 2x daily as [facility] 11/10/2017 1.5% Solution needed for pain No Active Unknown 01/01/2017 - Medications 01/01/2017 Diclofenac Sodium apply 1 grams on 100gm M25.539 Frediofijamaal Diaz, 2016 - hands twice daily [facility] 01/07/2017 1% Gel Miralax 17 gm every day 510units Felix Downey 07/28/2015 - 3350NF mixed w/ 8 oz [employer], 12/31/2016 Powder water/juice Nati,FACP Fluticasone 1 spray each nostril 16gm Felix Downey 07/28/2015 - Propionate in in the morning Meghan, 12/31/2016 Nati,FACP 50mcg/Act Suspension Cetirizine HCL 1 by mouth every day 30tabs Felix Downey 07/28/2015 - 10mg prn Meghan, 12/31/2016 Tablets Nati,FACP Wrist for carpal tunnel 1units Felix Downey 07/28/2015 - Splint/Neoprene/Rig syndrome [employer], 04/07/2018 ht/Radha Damian,FACP Misc Omeprazole 1 by mouth every day 30caps K29.60 Felix Downey 06/19/2015 - 20mg for 1 month then as [employer], 12/31/[address] melinda Damian,FACP Progesterone 1 by mouth every day Unknown - Micronized 06/19/2015 100mg Capsules Nona Thien, - 0.35mg MD Glenis 12/31/2016 Tablets Nona 1 by mouth every day Unknown - 0.35mg 12/30/2017 Tablets Vital Signs Date Vital Result Comment 11/13/2018 9:19am Height 64 inches 5'4" Weight 234.00 lb Heart Rate 89 /min BP Systolic 140 mmHg BP Diastolic 95 mmHg Body Temperature 97.7 F O2 % BldC Oximetry 98 % BMI (Body Mass Index) 40.2 kg/m2 04/07/2018 8:40am Height 64 inches 5'4" Weight 235.00 lb Heart Rate 81 /min BP Systolic 136 mmHg BP Diastolic 82 mmHg O2 % BldC Oximetry 97 % BMI (Body Mass Index) 40.3 kg/m2 12/31/2017 9:42am Height 64 inches 5'4" Weight 226.00 lb Heart Rate 64 /min BP Systolic Sitting 138 mmHg lue lg cuff BP Diastolic Sitting 82 mmHg lue lg cuff BP Systolic Standing 140 mmHg BP Diastolic Standing 80 mmHg Respiratory Rate 16 /min BMI (Body Mass Index) 38.8 kg/m2 11/27/2017 9:27am Height 64 inches 5'4" Weight 225.00 lb Heart Rate 68 /min BP Systolic 128 mmHg BP Diastolic 87 mmHg Body Temperature 99.4 F O2 % BldC Oximetry 99 % BMI (Body Mass Index) 38.6 kg/m2 11/10/2017 4:23pm Height 64 inches 5'4" Weight 229.75 lb Heart Rate 104 /min BP Systolic 120 mmHg BP Diastolic 74 mmHg Body Temperature 98.1 F O2 % BldC Oximetry 95 % BMI (Body Mass Index) 39.4 kg/m2 03/26/2017 9:47am Height 64 inches 5'4" Weight 225.50 lb Heart Rate 82 /min BP Systolic Sitting 138 mmHg BP Diastolic Sitting 80 mmHg Respiratory Rate 14 /min Body Temperature 97.6 F O2 % BldC Oximetry 98 % BMI (Body Mass Index) 38.7 kg/m2 02/12/2017 9:35am Height 64 inches 5'4" Weight 218.00 lb Heart Rate 83 /min BP Systolic Sitting 154 mmHg BP Diastolic Sitting 88 mmHg Body Temperature 97.5 F O2 % BldC Oximetry 98 % BMI (Body Mass Index) 37.4 kg/m2 01/01/2017 2:32pm Height 64 inches 5'4" Weight 214.00 lb Heart Rate 72 /min BP Systolic Sitting 138 mmHg BP Diastolic Sitting 84 mmHg Respiratory Rate 14 /min Body Temperature 98.0 F Pain Level 9 bilateral wrist R>L BMI (Body Mass Index) 36.7 kg/m2 08/18/2015 11:05am Height 64 inches 5'4" Weight 216.38 lb Heart Rate 69 /min BP Systolic Sitting 136 mmHg BP Diastolic Sitting 78 mmHg O2 % BldC Oximetry 98 % BMI (Body Mass Index) 37.1 kg/m2 Neck Circumference in inches 15.25 07/28/2015 9:26am Height 62.5 inches 5'2.50" Weight 222.00 lb Heart Rate 98 /min BP Systolic Sitting 132 mmHg BP Diastolic Sitting 86 mmHg Body Temperature 97.2 F O2 % BldC Oximetry 97 % BMI (Body Mass Index) 40.0 kg/m2 07/19/2015 10:52am Height 62.5 inches 5'2.50" Weight 221.00 lb Heart Rate 104 /min BP Systolic Sitting 122 mmHg BP Diastolic Sitting 80 mmHg Body Temperature 97.3 F O2 % BldC Oximetry 96 % BMI (Body Mass Index) 39.8 kg/m2 06/19/2015 11:02am Height 62.5 inches 5'2.50" Weight 214.50 lb Heart Rate 120 /min Body Temperature 97.4 F O2 % BldC Oximetry 98 % BMI (Body Mass Index) 38.6 kg/m2 Results Test Date Facility Test Result H/L Range Note Lipid Profile 04/10/2018 [facility] Triglycerides 285 mg/dL 1 (Trig/Chol/HDL) [address] [place] [address] [phone] Cholesterol 209 mg/dL 2 HDL Cholesterol 37.1 mg/dL 3 LDL Cholesterol 115 mg/dL 4 Basic Metabolic Panel 04/10/2018 [facility] Sodium 138 mmol/L N 135-145 [address] [place] [address] [phone] Potassium 4.0 mmol/L N 3.5-5.0 Chloride 107 mmol/L N 101-111 Co2 Carbon Dioxide 26 mmol/L N 22-32 Anion Gap 5 mmol/L N 2-11 Glucose 99 mg/dL N 70-100 Blood Urea Nitrogen 13 mg/dL N 6-24 Creatinine 0.64 mg/dL N 0.51-0.95 BUN/Creatinine Ratio 20.3 High 8-20 Calcium 9.1 mg/dL N 8.6-10.3 Egfr Non- 105.0 >60 Egfr 127.0 >60 5 CBC No Diff 03/23/2018 [facility] White Blood 7.5 10^3/uL N 3.5-10.[address] [place] [address] [phone] Red Blood Count 5.19 10^6/uL N 4.00-5.40 Hemoglobin 14.7 g/dL N 12.0-16.0 Hematocrit 44 % N 35-47 Mean Corpuscular Volume 84 fL N 80-97 Mean Corpuscular Hemoglobin 28 pg N 27-31 Mean Corpuscular HGB Conc 33 g/dL N 31-36 Red Cell Distribution Width 14 % N 10.5-15 Platelet Count 284 10^3/uL N 150-450 Mean Platelet Volume 8.5 fL N 7.4-10.4 Iron & Iron Binding 03/23/2018 [facility] Iron 126 g/dL N 50 -[address] [place] [address] [phone] Unsaturated Iron Binding < 429 g/dL Total Iron Binding Capacity 444 g/dL N 250-450 Transferrin 317 mg/dL N 203-362 % Iron Saturation 28 % N 15-55 Laboratory test 03/23/2018 [facility] Ferritin 17.7 ng/mL N 11 -[address] [place] [address] [phone] Laboratory test 11/24/2017 [facility] Cytology SEE RESULT [address] [place] [address] [phone] Laboratory test 11/14/2017 [facility] Ferritin 4.0 ng/mL Low 11-[address] [place] [address] [phone] Magnesium 2.0 mg/dL N 1.9-2.7 TSH (Thyroid Stim Horm) 6.03 mcIU/mL High 0.34-5.60 Vitamin B12 310 pg/mL N 180-914 8 D Dimer Quantitative < 200 ng/mL N Less Than 230 9 CBC Auto Diff 11/14/2017 [facility] White Blood 6.5 10^3/uL N 3.5-10.[address] [place] [address] [phone] Red Blood Count 4.74 10^6/uL N 4.00-5.40 Hemoglobin 10.1 g/dL Low 12.0-16.0 Hematocrit 33 % Low 35-47 Mean Corpuscular Volume 69 fL Low 80-97 Mean Corpuscular Hemoglobin 21 pg Low 27-31 Mean Corpuscular HGB Conc 31 g/dL N 31-36 Red Cell Distribution Width 16 % High 10.5-15 Platelet Count 332 10^3/uL N 150-450 Mean Platelet Volume 8.1 um3 N 7.4-10.4 Abs Neutrophils 3.7 10^3/uL N 1.5-7.7 Abs Lymphocytes 2.1 10^3/uL N 1.0-4.8 Abs Monocytes 0.5 10^3/uL N 0-0.8 Abs Eosinophils 0.2 10^3/uL N 0-0.6 Abs Basophils 0 10^3/uL N 0-0.2 Abs Nucleated RBC 0 10^3/uL Granulocyte % 56.5 % N 38-83 Lymphocyte % 32.7 % N 25-47 Monocyte % 7.9 % High 0-7 Eosinophil % 2.4 % N 0-6 Basophil % 0.5 % N 0-2 Nucleated Red Blood Cells % 0 Comp Metabolic Panel 11/14/2017 [facility] Sodium 137 mmol/L N 135-[address] [place] [address] [phone] Potassium 4.4 mmol/L N 3.5-5.0 Chloride 105 mmol/L N 101-111 Co2 Carbon Dioxide 25 mmol/L N 22-32 Anion Gap 7 mmol/L N 2-11 Glucose 96 mg/dL N 70-100 Blood Urea Nitrogen 9 mg/dL N 6-24 Creatinine 0.66 mg/dL N 0.51-0.95 BUN/Creatinine Ratio 13.6 N 8-20 Calcium 8.8 mg/dL N 8.6-10.3 Total Protein 6.5 g/dL N 6.4-8.9 Albumin 4.0 g/dL N 3.2-5.2 Globulin 2.5 g/dL N 2-4 Albumin/Globulin Ratio 1.6 N 1-3 Total Bilirubin 0.30 mg/dL N 0.2-1.0 Alkaline Phosphatase 61 U/L N 34-104 Alt 16 U/L N 7-52 Ast 17 U/L N 13-39 Egfr Non- 101.9 >60 Egfr 123.3 >60 10 Cell Morphology 11/14/2017 [facility] Microcytosis 2+ [address] [place] [address] [phone] Hypochromasia 1+ Iron & Iron Binding 11/14/2017 [facility] Iron 22 g/dL Low 50-[address] [place] [address] [phone] Unsaturated Iron Binding 475 g/dL Total Iron Binding Capacity 497 g/dL High 250-450 Transferrin 355 mg/dL N 203-362 % Iron Saturation 4 % Low 15-55 Laboratory test 11/14/2017 [facility] Free T4 (Free 0.72 ng/dL N 0.61-1.[address] Thyroxine) [place] [address] [phone] T3 Total 104 ng/dL N 87-178 Pathologist Review (SEE NOTE) 11 CBC Auto Diff 02/13/2017 [facility] White Blood 5.9 10^3/uL N 3.5-10.[address] [place] [address] [phone] Red Blood Count 4.61 10^6/uL N 4.0-5.4 Hemoglobin 11.6 g/dL Low 12.0-16.0 Hematocrit 36 % N 35-47 Mean Corpuscular Volume 78 fL Low 80-97 Mean Corpuscular Hemoglobin 25 pg Low 27-31 Mean Corpuscular HGB Conc 32 g/dL N 31-36 Red Cell Distribution Width 16 % High 10.5-15 Platelet Count 297 10^3/uL N 150-450 Mean Platelet Volume 8 um3 N 7.4-10.4 Abs Neutrophils 3.4 10^3/uL N 1.5-7.7 Abs Lymphocytes 2.0 10^3/uL N 1.0-4.8 Abs Monocytes 0.4 10^3/uL N 0-0.8 Abs Eosinophils 0.2 10^3/uL N 0-0.6 Abs Basophils 0 10^3/uL N 0-0.2 Abs Nucleated RBC 0.01 10^3/uL N Granulocyte % 57.3 % N 38-83 Lymphocyte % 32.9 % N 25-47 Monocyte % 6.7 % N 1-9 Eosinophil % 2.7 % N 0-6 Basophil % 0.4 % N 0-2 Nucleated Red Blood Cells % 0.1 N Laboratory test 02/13/2017 [facility] TSH (Thyroid 3.48 mcIU/mL N 0.34-5.[address] Stim Horm) [place] [address] [phone] Comp Metabolic 02/13/2017 [facility] Sodium 136 mmol/L N 133- [address] [place] [address] [phone] Potassium 4.3 mmol/L N 3.5-5.0 Chloride 104 mmol/L N 101-111 Co2 Carbon Dioxide 27 mmol/L N 22-32 Anion Gap 5 mmol/L N 2-11 Glucose 89 mg/dL N 70-100 Blood Urea Nitrogen 10 mg/dL N 6-24 Creatinine 0.71 mg/dL N 0.51-0.95 BUN/Creatinine Ratio 14.1 N 8-20 Calcium 8.9 mg/dL N 8.6-10.3 Total Protein 6.7 g/dL N 6.4-8.9 Albumin 3.9 g/dL N 3.2-5.2 Globulin 2.8 g/dL N 2-4 Albumin/Globulin Ratio 1.4 N 1-3 Total Bilirubin 0.30 mg/dL N 0.2-1.0 Alkaline Phosphatase 49 U/L N 34-104 Alt 17 U/L N 7-52 Ast 19 U/L N 13-39 Egfr Non- 93.7 N >60 Egfr 120.5 N >60 13 Lipid Profile 02/13/2017 [facility] Triglycerides 175 mg/dL N 14 (Trig/Chol/HDL) [address] [place] [address] [phone] Cholesterol 183 mg/dL N 15 HDL Cholesterol 34.9 mg/dL N 16 LDL Cholesterol 113 mg/dL N 17 Lipid Profile 06/21/2015 [facility] Triglycerides 175 mg/dL N 18 (Trig/Chol/HDL) [address] [place] [address] [phone] Cholesterol 216 mg/dL N 19 HDL Cholesterol 29.9 mg/dL N 20 LDL Cholesterol 151 mg/dL N 21 Basic Metabolic Panel 06/21/2015 [facility] Sodium 136 mmol/L N 133-[address] [place] [address] [phone] Potassium 4.4 mmol/L N 3.5-5.0 Chloride 104 mmol/L N 101-111 Co2 Carbon Dioxide 24 mmol/L N 22-32 Anion Gap 8 mmol/L N 2-11 Glucose 87 mg/dL N 70-100 Blood Urea Nitrogen 7 mg/dL N 6-24 Creatinine 0.79 mg/dL N 0.51-0.95 BUN/Creatinine Ratio 8.9 N 8-20 Calcium 9.3 mg/dL N 8.6-10.3 Egfr Non- 83.8 N >60 Egfr 107.8 N >60 22 CBC Auto Diff 06/21/2015 [facility] White Blood 7.1 10^3/uL N 3.5-10.[address] [place] [address] [phone] Red Blood Count 4.97 10^6/uL N 4.0-5.4 Hemoglobin 13.0 g/dL N 12.0-16.0 Hematocrit 41 % N 35-47 Mean Corpuscular Volume 82 fL N 80-97 Mean Corpuscular Hemoglobin 26 pg Low 27-31 Mean Corpuscular HGB Conc 32 g/dL N 31-36 Red Cell Distribution Width 16 % High 10.5-15 Platelet Count 295 10^3/uL N 150-450 Mean Platelet Volume 8 um3 N 7.4-10.4 Abs Neutrophils 4.4 10^3/uL N 1.5-7.7 Abs Lymphocytes 2.0 10^3/uL N 1.0-4.8 Abs Monocytes 0.4 10^3/uL N 0-0.8 Abs Eosinophils 0.2 10^3/uL N 0-0.6 Abs Basophils 0 10^3/uL N 0-0.2 Abs Nucleated RBC 0.01 10^3/uL N Granulocyte % 62.2 % N 38-83 Lymphocyte % 28.4 % N 25-47 Monocyte % 5.9 % N 1-9 Eosinophil % 3.1 % N 0-6 Basophil % 0.4 % N 0-2 Nucleated Red Blood Cells % 0.1 N Laboratory test 06/21/2015 [facility] TSH (Thyroid 3.23 N 0.34 -5.60 [address] Stimulating ?IU/[place] [address] Horm) [phone] Free T4 0.89 ng/dL N 0.61-1.12 24 1 Desirable: <150 Borderline High: 150-199 High: 200-499 Very High: >500 2 Desirable: <200 Borderline High: 200-239 High: >239 3 Low: <40 Desirable: 40-60 High: >60 4 Desirable: <100 Near Optimal: 100-129 Borderline High: 130-159 High: 160-189 Very High: >189 5 Because ethnic data is not always readily [...] 15-29 5 Kidney failure <15 (or dialysis) January 25 SEE RESULT BELOW Name: SIOBHANMeleCELESTE M : [address]: Glenis Neumann MD Acct: [id number] Unit: [id number] AGE: 36 Location: [facility] Re11/24/17 SEX: F Status: REG REF SPEC: [id number] MARISOL: 11/24/[address]: Glenis Neumann MD REQ: [id number] RECD: 11/24/17 STATUS: [facility] STEPHEN[facility] DR: Felix Christianson MD _ ORDERED: TP IMAGE ANALYS, HPV/Thin Prep COMMENTS: [id number] Negative for Intraepithelial lesion or Malignancy Date [...] was evaluated with the assistance of the [employer] GeneticsPrep Test Imaging System. Due to cytologic findings at the bottling attendant microscope, comprehensive manual rescreening by a Escalation Engineer may be required. The Pap Smear is [...] years. END OF REPORT DEPARTMENT OF PATHOLOGY, [address] [place] [address] Vivek Escobar M.D. Director [facility] # [id number] Normal Range 180 to 914 Indeterminate Range 145 to 180 Deficient Range <145 9 Please note: The following may produce a false positive D Dimer test: - Rheumatoid factor greater than 60 IU/ml - Plasma hemoglobin greater than 0.05 gm/dl - Bilirubin greater than 50 mg/dl - Lipids greater than 1000 mg/dl - FDP greater than 20 ug/ml 10 Because ethnic data is not always readily [...] 15-29 5 Kidney failure <15 (or dialysis) 11 Microcytic anemia with red cell indices suggestive of iron deficiency noted. Additional studies is warranted. Reviewed by Dr. Escobar 12 FASTING 10 HOUR 13 Because ethnic data is not always readily [...] 15-29 5 Kidney failure <15 (or dialysis) 14 Desirable: <150 Borderline High: 150-199 High: 200-499 Very High: >500 15 Desirable: <200 Borderline High: 200-239 High: >239 16 Low: <40 Desirable: 40-60 High: >60 17 Desirable: <100 Near Optimal: 100-129 Borderline High: 130-159 High: 160-189 Very High: >189 18 Desirable <150 Borderline high 150-199 High 200-499 Very High >500 19 Desirable <200 Borderline high 200-239 High >239 20 Low <40 Desirable: 40-60 High: >60 21 Desirable: <100 mg/dL Near Optimal: 100-129 mg/dL Borderline High: 130-159 mg/dL High: 160-189 mg/dL Very High: >189 mg/dL 22 Because ethnic data is not always readily [...] 15-29 5 Kidney failure <15 (or dialysis) 23 FASTING 10 HOUR Copy Result to: GLENIS NEUMANN ([id number]) 24 FASTING 10 HOUR Copy Result to: GLENIS NEUMANN ([id number]) Procedures Date Code Description Status 01/19/2018 60499 Holter Monitor Review (24 hr)dr review & interp only Completed 01/16/2018 54863 ECG Monitor/Recording W/Visual Superimposition Scanning Completed 01/09/2018 91850 ECHO Stress Test Incl Perf Contiuous ekg Monitoring W/Phys Completed Superv 12/31/2017 43505 EKG Tracing & Interpretation Completed 11/10/2017 00255 EKG Tracing & Interpretation Completed Encounters Type Date Location Provider Dx Diagnosis Office Visit 04/07/2018 [facility] Delio Herring NP Z00.00 Encntr for general 8:40a Medicine - [facility] adult medical exam w/o abnormal findings G47.00 Insomnia, unspecified Z13.220 Encounter for screening for lipoid disorders Z13.1 Encounter for screening for diabetes mellitus Z87.891 Personal history of nicotine dependence J30.89 Other allergic rhinitis M54.31 Sciatica, right side Office Visit 12/31/2017 10:00a [facility] Daniel Downey R07.9 Chest pain, Of Jason Cason M.D. 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 not intractable, [facility] w/o status migrainosus R25.2 Cramp and spasm R07.9 Chest pain, unspecified Office Visit 03/26/2017 10:00a [facility] Frediofia Joe, D64.9 Anemia, Medicine - Suite FORENSIC SCIENCE TECHNICIAN unspecified R M25.531 Pain in right wrist Office Visit 02/12/2017 9:40a [facility] Temo Diaz, Z00.01 Encounter for Medicine - Suite FORENSIC SCIENCE TECHNICIAN general adult R medical exam w abnormal findings Z13.220 Encounter for screening for lipoid disorders R53.83 Other fatigue N92.0 Excessive and frequent menstruation with regular cycle G56.01 Carpal tunnel syndrome, right upper limb M54.5 Low back pain E66.9 Obesity, unspecified Z00.00 Encntr for general adult medical exam w/o abnormal findings Office Visit 01/01/2017 2:20p [facility] Fredibayronjamaal Diaz, M25.539 Pain in Medicine - FORENSIC SCIENCE TECHNICIAN unspecified wrist Suite R M54.2 Cervicalgia M25.511 Pain in right shoulder G56.00 Carpal tunnel syndrome, unspecified upper limb M25.531 Pain in right wrist Office Visit 08/18/2015 11:15a [facility] Mel[facility]ie G47.9 Sleep disorder, Sleep Services Of CHELE Shah, RN, unspecified [facility] FORENSIC SCIENCE TECHNICIAN- R06.83 Snoring G47.61 Periodic limb movement disorder Office Visit 07/28/2015 9:20a [facility] Felix Downey K59.00 Constipation, Antonio Christianson M.D.,FACP unspecified Suite R G56.00 Carpal tunnel syndrome, unspecified upper limb J30.9 Allergic rhinitis, unspecified M54.5 Low back pain Z68.39 Body mass index (BMI) 39.0-39.9, adult Office Visit 07/19/2015 11:00a [facility] Stoney Baird, Z68.39 Body mass index Medicine - Suite RAIL CAR PAINTER/SANDBLASTER (BMI) 39.0-39.9, R adult R06.83 Snoring K29.60 Other gastritis without bleeding Office Visit 06/19/2015 10:50a [facility] Felix Downey Z00.01 Encounter for Antonio Christianson M.D.,[facility] general adult Suite R medical exam w abnormal findings E03.9 Hypothyroidism, unspecified K29.60 Other gastritis without bleeding Z68.34 Body mass index (BMI) 34.0-34.9, adult Plan of Treatment 11/13/2018 - Delio Herring, NPG47.00 Insomnia, unspecifiedNew Medication:Seroquel 25 mg - take 1 by mouth at bedtime. If not effective for sleep increase to two tablets after a week.Comments:I am referring you to the sleep clinic for further evaluation.Ref[place], Sleep [facility]ord,Diag/TkysqnO43.109 Migraine with aura, not intractable, without status migrainoComments:Continue using the Sumatriptan as needed.Consider adding 400mg Magnesium daily.R14.0 Abdominal distension (gaseous)R40.0 JifhmlwldeH33.89 Other allergic rhinitisNew Medication:Fluticasone Propionate 50 mcg/Act - 2 sprays each nostril qd.
--- NOTE | 2018-11-26 18:00 | UC ---
Abdominal Pain Female HPI - HPI Summary HPI Summary: 37 yo female with the onset this AM of left pelvic pain pain is now a 10 no n/v no comfortable position no diarrhea or change in bowel habits no fever no chills has had hysterectomy has not taken anything for pain - History of Current Complaint Chief Complaint: UCAbdominalPain Stated Complaint: ABD PAIN Time Seen by Provider: 11/26/18 17:09 Hx Obtained From: Patient Hx Last Menstrual Period: last year, Jan 22 Onset/Duration: Gradual Onset Severity Initially: Mild Severity Currently: Severe Pain Intensity: 10 Pain Scale Used: 0-10 Numeric Location: Discrete At: LLQ Radiates: No Character: Unable to describe Aggravating Factor(s): Nothing Alleviating Factor(s): Nothing Associated Signs and Symptoms: Positive: Negative Allergies/Adverse Reactions: Allergies Allergy/AdvReac Type Severity Reaction Status Date / Time Penicillins Allergy Severe Swelling Verified 11/26/18 16:02 Of Face,Lips,& Throat Home Medications: Home Medications Fluticasone NASAL SPRAY 50MCG* [Flonase NASAL SPRAY 50MCG*] 2 inh BOTH NARES DAILY 11/26/18 [History Confirmed 11/26/18] Loratadine [Claritin] 10 mg PO DAILY 11/26/18 [History Confirmed 11/26/18] Omeprazole 20 mg PO DAILY 11/26/18 [History Confirmed 11/26/18] PMH/Surg Hx/FS Hx/Imm Hx Previously Healthy: Yes - Surgical History Surgical History: Yes Surgery Procedure, Year, and Place: tubal ligation. d&c. partial hysterectomy - Family History Known Family History: Positive: Hypertension, Non-Contributory - Social History Alcohol Use: Rare Substance Use Type: None Smoking Status (MU): Never Smoked Tobacco When Did the Patient Quit Smoking/Using Tobacco: 6 years ago - Immunization History Most Recent Influenza Vaccination: none Most Recent Pneumonia Vaccination: none Review of Systems All Other Systems Reviewed And Are Negative: Yes Constitutional: Positive: Negative Skin: Positive: Negative Eyes: Positive: Negative ENT: Positive: Negative Respiratory: Positive: Negative Cardiovascular: Positive: Negative Gastrointestinal: Positive: Abdominal Pain Genitourinary: Positive: Negative Motor: Positive: Negative Neurovascular: Positive: Negative Musculoskeletal: Positive: Negative Neurological: Positive: Negative Psychological: Positive: Negative Physical Exam Triage Information Reviewed: Yes Appearance: Well-Appearing, No Pain Distress, Well-Nourished, Other: - BMI 40 Vital Signs: Initial Vital Signs Temp 98.8 F 11/26/18 15:55 Pulse 76 11/26/18 15:55 Resp 18 11/26/18 15:55 BP 180/89 11/26/18 15:55 Pulse Ox 100 11/26/18 15:55 Vital Signs Reviewed: Yes Eyes: Positive: Conjunctiva Clear ENT: Positive: Hearing grossly normal. Negative: Nasal congestion, Nasal drainage, Trismus, Muffled voice, Hoarse voice, Uvula midline Neck: Positive: Supple, Nontender, No Lymphadenopathy Respiratory: Positive: Lungs clear, Normal breath sounds, No respiratory distress Cardiovascular: Positive: RRR, No Murmur Abdominal Exam: Normal Abdomen Description: Positive: Nontender Musculoskeletal: Positive: ROM Intact, No Edema Neurological: Positive: Alert Psychological Exam: Normal Skin Exam: Normal Diagnostics - Radiology No standard instances Summary of Radiographic Findings: U/S and CT show left ovarian cyst Re-Evaluation - Re-Evaluation First Eval Re-Evaluation Time: 19:34 Change: Improved - pain5-6/10 Abd Pain Female Course/Dx - Differential Dx/Diagnosis Provider Diagnosis: Left ovarian cyst Discharge - Sign-Out/Discharge Documenting (check all that apply): Patient Departure All imaging exams completed and their final reports reviewed: Yes - Discharge Plan Condition: Stable Disposition: HOME Patient Education Materials: Ovarian Cyst (ED) Forms: *Work Release Additional Instructions: see your court bailiff tomorrow as planned norco one every 4 hours for severe pain advil 200mg 3 pills 4x day with food for pain - Billing Disposition and Condition Condition: STABLE Disposition: Home
[2018-11-26] MEDS ORDERED: Ketorolac INJ* 30 MG/ML 1 ML VIAL IM ONE (18:03)
[2018-11-26 18:46] VITALS: BP 128/98
[2018-11-26] MEDS ORDERED: HYDROcodone/ACETAMIN 5-325 MG* 1 TAB PO ONE (19:37)
== END 2018-11-26 20:00 | disposition home or self-care (01) ==
LOC: UCEAST 15:28
DX: N83.202 Unspecified ovarian cyst, left side (principal); Z88.0 Allergy status to penicillin
CPT/HCPCS: 74176; 76830; 81002; 87086; 96372; 99212; G0463; J1885

== ENCOUNTER 2018-11-29 07:39 | Emergency (ER) | payer OTHER ==
--- OUTSIDE RECORDS SUMMARY | 2018-11-29 07:47 | XMS REPORT | Continuity of Care Document ---
:1980 External Reference #:[id number] Author Name Andrews Edwards JR, DO (transmitted by agent of provider Andrews Edwards) Address [address], [place] [address] Care Team Providers Name Role Phone Delio Herring Care Team Information Psychotherapist Social Worker [phone] Problems Description No Information Available Social History Type Date Description Comments Sex Unknown Cigarette Use Former Cigarette Smoker 1-5 X5 years Cigarettes Daily ETOH Use Occasionally consumes alcohol Recreational Drug Use Denies Drug Use Tobacco Use Start: Unknown End: Patient is a former smoker Unknown Smoking Status Reviewed: 11/27/18 Patient is a former smoker Exercise Type/Frequency Exercises regularly Seat Belt/Car Seat Always uses seat belt Allergies, Adverse Reactions, Alerts Active Allergies Reaction Severity Comments Date Penicillin 05/03/2015 Medications Active Medications SIG Qnty Indications Ordering Provider Date Omeprazole Unknown Flonase Allergy Relief Unknown Claritin Unknown Triamcinolone Acetonide Unknown Medications Administered in Office Medication SIG Qnty Indications Ordering Provider Date PT SCRN Tbco Id as Non User Glenis Neumann MD 01/12/2018 Injection PT SCRN Tbco Id as Non User Glenis Neumann MD 11/24/2017 Injection Immunizations CPT Code Status Date Vaccine Lot # [id number] Given 06/16/2015 Tetnus, Diptheria Toxoids And Acellular Pertussis, [id number] PT > 7Yrs Old Vital Signs Date Vital Result Comment 11/27/2018 12:58pm BP Systolic 140 mmHg BP Diastolic 98 mmHg Height 62.5 inches 5'2.50" Weight 235.00 lb BMI (Body Mass Index) 42.3 kg/m2 Last Menstrual Period [id number] Parity 2 01/29/2018 3:57pm BP Systolic 158 mmHg BP Diastolic 100 mmHg Height 62.5 inches 5'2.50" Weight 226.00 lb BMI (Body Mass Index) 40.7 kg/m2 5 Parity 2 Results Description No Information Available Procedures Description No Information Available Medical Devices Description No Information Available Encounters Type Date Location Provider Dx Diagnosis Office Visit 11/27/[facility] Andrews Edwards JR, N83.292 Other ovarian cyst, 1:00p DO left side Assessments Date Code Description Provider 11/27/2018 N83.292 Other ovarian cyst, left side Andrews Edwards JR, DO Plan of Treatment Future Appointment(s):01/18/2019 1:30 pm - [facility] JR[facility] 1:00 pm - [facility] - Andrews Edwards JR, DON83.292 Other ovarian cyst, left sideComments:Patient with simple cyst of left ovary. No evidence of torsion.Stable benign abdominal exam today. Pt will f /u with repeat USN in 6-8 weeks. Pt reassured that cyclic light vaginal bleeding after Supracervical Hysterectomy is possible and not concern for pathologic etiology. Functional Status Description No Information Available Mental Status Description No Information Available Referrals Description No Information Available
[2018-11-29 07:49] VITALS: BP 179/100
--- NOTE | 2018-11-29 08:05 | ED ---
Skin Complaint - HPI Summary HPI Summary: Patient is a 37-year-old female who presents to the emergency department for a pruritic, vesicular rash to left hand and face. Patient states she was pulling weeds in her garden a few days ago and the next morning noticed rash to her left hand. Patient states her significant other states there is poison august where she was pulling weeds. Pt. states rash started on left hand and then spread to face a few days later. Sxs are mild in severity. No current modifying factors. - History of Current Complaint Chief Complaint: EDRashSkinAbscess Time Seen by Provider: 11/29/18 07:49 Stated Complaint: POSS POISON AUGUST RASH PER PT Hx Obtained From: Patient Hx Last Menstrual Period: last year, Jan 22 Pain Intensity: 4 - Additional Pertinent History Primary Care Physician: [id number] - Allergy/Home Medications Allergies/Adverse Reactions: Allergies Allergy/AdvReac Type Severity Reaction Status Date / Time Penicillins Allergy Severe Swelling Verified 11/29/18 07:44 Of Face,Lips,& Throat PMH/Surg Hx/FS Hx/Imm Hx Previously Healthy: Yes Sensory History: Denies: Hx Contacts or Glasses, Hx Hearing Aid Opthamlomology History: Denies: Hx Contacts or Glasses Neurological History: Reports: Hx Migraine - prn - Cancer History Hx Chemotherapy: No - Surgical History Surgery Procedure, Year, and Place: tubal ligation. d&c. partial hysterectomy Hx Anesthesia Reactions: No Infectious Disease History: No Infectious Disease History: Denies: History Other Infectious Disease, Traveled Outside the [place] in Last 30 Days - Family History Known Family History: Positive: Hypertension, Non-Contributory - Social History Occupation: Employed Full-time Lives: With Family Alcohol Use: Rare Substance Use Type: Reports: None Smoking Status (MU): Never Smoked Tobacco Review of Systems Constitutional: Negative Positive: Rash All Other Systems Reviewed And Are Negative: Yes Physical Exam Triage Information Reviewed: Yes Vital Signs On Initial Exam: Initial Vitals Temp Pulse Resp BP Pulse Ox 97.8 F 90 14 179/100 99 11/29/18 07:42 11/29/18 07:42 11/29/18 07:42 11/29/18 07:42 11/29/18 07:42 Vital Signs Reviewed: Yes Appearance: Positive: Well-Appearing - Pt. sitting up in bed in NAD. SO present. Skin: Positive: Warm, Dry, Other - Small vesicular rash noted to dorsal aspect of left hand over 4th mcp region into webbing of fingers. A few small areas of similar rash to face. No mucosal involvement. Negative nikolsky sign. No urticaria. Head/Face: Positive: Normal Head/Face Inspection Eyes: Positive: Normal, EOMI Neck: Positive: Supple Neurological: Positive: Normal, CN Intact II-III Psychiatric: Positive: Affect/Mood Appropriate Diagnostics - Vital Signs Vital Signs Temp Pulse Resp BP Pulse Ox 11/29/18 07:42 97.8 F 90 14 179/100 99 - Laboratory Lab Statement: Any lab studies that have been ordered have been reviewed, and results considered in the medical decision making process. Course/Dx - Course Assessment/Plan: Pt.'s history and rash consistant with likely rxn to poison august. Will do a course of steroids and advised to use over the counter cream for poison august. Educated on washing all objects that may have come into contact. Pt. will f.u with pcp if needed. Pt. understands and agrees with plan. - Differential Diagnoses - Skin Complaint Differential Diagnoses: Cellulitis, Contact Dermatitis, Dehydration, Poison August , Poison [place], Scabies - Diagnoses Provider Diagnoses: Poison august dermatitis, Rash Discharge - Sign-Out/Discharge Documenting (check all that apply): Patient Departure Patient Received Moderate/Deep Sedation with Procedure: No - Discharge Plan Condition: Good Disposition: HOME Prescriptions: RX: predniSONE TAB* [Deltasone 20 MG TAB*] 40 mg PO DAILY #10 tab Patient Education Materials: Poison August (ED) Referrals: Delio Herring COMMUNITY AMBASSADOR [Primary Care Provider] - Additional Instructions: Follow up with PCP in one week if rash persist Prednisone as directed Use an over the counter poison august cream such as: Ivarest or Zanfel Be sure to wash all items that may have come into contact with poison Return to ER if symptoms change or worsen - Billing Disposition and Condition Condition: GOOD Disposition: Home
== END 2018-11-29 08:11 | disposition home or self-care (01) ==
LOC: ED 07:39
DX: L23.7 Allergic contact dermatitis due to plants, except food (principal); Z88.0 Allergy status to penicillin
CPT/HCPCS: 99282

== ENCOUNTER 2019-05-10 14:47 | Emergency (ER) | payer OTHER ==
--- OUTSIDE RECORDS SUMMARY | 2019-05-10 14:53 | XMS REPORT | Continuity of Care Document ---
:1980 External Reference #:[id number] Author Name Darya Marvin N.P. (transmitted by agent of provider Sowmya Vargas) Address [address], [address] [place] [id number] Care Team Providers Name Role Phone Glenis Neumann MD - Obstetrics & Care Team Information Protection Consultant Gynecology Delio Herring NP - Internal Medicine Care Team Information Protection Consultant Problems Active Problems Provider Date Uterine leiomyoma Felix Christianson M.D.,FACP Onset: 06/19/2015 Hypothyroidism Felix Christianson M.D.,FACP Onset: 06/19/2015 Mixed hyperlipidemia Felix Christianson M.D.,FACP Onset: 07/28/2015 Dyssomnia Melonie Shah DNP, RN, APPLIANCE ADJUSTER-BC Onset: 08/18/2015 Snoring Melonie Shah DNP, RN, APPLIANCE ADJUSTER-BC Onset: 08/18/2015 Periodic leg movements of sleep Melonie Shah DNP RN, APPLIANCE ADJUSTER-BC Onset: 08/17 Social History Type Date Description Comments Sex Unknown Cigarette Use Quit - Age 31 ETOH Use 06/19/2015 Rarely consumes alcohol Tobacco Use Start: Unknown End: Patient is a former 1 pack every 4 days Unknown smoker X 5 years. Quit 6 years ago. 2011 Recreational Drug Use Denies Drug Use Smoking Status Reviewed: 05/04/19 Patient is a former 1 pack every 4 days smoker X 5 years. Quit 6 years ago. 2011 Exercise Type/Frequency Exercises regularly Allergies, Adverse Reactions, Alerts Active Allergies Reaction Severity Comments Date Penicillin hives, itchy, and trouble swallowing 06/19/2015 Medications Active Medications SIG Qnty Indications Ordering Date Provider Azithromycin two tabs day one, 6tabs J01.90 Darya Marvin, 05/04/2019 250mg one daily till N.P. Tablets gone Nasonex use 2 sprays in 17gm J30.89 Darya Marvin, 05/04/2019 50mcg/Act each nostril once N.P. Suspension daily until you feel better, then 1 spray in each nostril once daily Cetirizine HCL 1 by mouth every 30tabs J30.89 Darya Marvin, 05/04/2019 10mg day N.P. Tablets Omeprazole Take 1 Capsule By 30caps K29.60 Delio Herring NP 11/16/2018 20mg Mouth Every Day Capsules DR For 1 Month as Directed Seroquel Not Using Due To 60tabs G47.00 Delio Herring NP 11/13/2018 25mg Tablets [place] Right Now take 1 by mouth at bedtime. if not effective for sleep increase to two tablets after a week. Triamcinolone apply twice daily 45gm Kat Irvin, 11/13/2018 Acetonide to the affected M.D. 0.5% Cream area Sumatriptan Succinate Please See 9tabs G43.109 Delio Herring NP 04/07/2018 Attached For 100mg Tablets Detailed Directions History Medications Loratadine Take 1 Tablet By 30tabs J30.89 Delio Herring NP 05/01/2019 - 10mg Mouth Every Day 05/04/2019 Tablets Prednisone 3 tab daily x 5 QS L23.7 Kat Irvin, 12/03/2018 - 10mg days and then 2 M.D. 12/16/2018 Tablets tab daily x 5 days 1 tab daily x 3 days Fluticasone [place] 2 Sprays 16units J30.89 Delio Herring NP 11/13/2018 - Propionate Into Each 05/04/2019 50mcg/Act Nostril Every Suspension Day Medications Administered in Office Medication SIG Qnty Indications Ordering Provider Date Tetanus,Unspecified Unknown 12/04/2016 Injection Immunizations Description No Information Available Vital Signs Date Vital Result Comment 05/04/2019 1:52pm Height 64 inches 5'4" Weight 240.25 lb Heart Rate 81 /min BP Systolic Sitting 140 mmHg BP Diastolic Sitting 90 mmHg Body Temperature 97.6 F O2 % BldC Oximetry 95 % BMI (Body Mass Index) 41.2 kg/m2 01/19/2019 1:54pm Height 64 inches 5'4" Weight 242.00 lb Heart Rate 92 /min BP Systolic 110 mmHg BP Diastolic 70 mmHg O2 % BldC Oximetry 96 % BMI (Body Mass Index) 41.5 kg/m2 Neck Circumference in inches 17 Results Test Acquired Date Facility Test Result H/L Range Note Urine Culture And 11/26/2018 [facility] Urine SEE RESULT 1 , [address] [place] [address] [phone] CBC Auto Diff 11/13/2018 [facility] White Blood 7.3 Normal 3.5 -10.[address] Count 10^3/[place] [address] [phone] Red Blood Count 5.29 10^6/uL High 3.70-4.87 Hemoglobin 15.4 g/dL Normal 12.0-16.0 Hematocrit 45 % Normal 35-47 Mean Corpuscular Volume 86 fL Normal 80-97 Mean Corpuscular Hemoglobin 29 pg Normal 27-31 Mean Corpuscular HGB Conc 34 g/dL Normal 31-36 Red Cell Distribution Width 13 % Normal 10-15 Platelet Count 300 10^3/uL Normal 150-450 Mean Platelet Volume 8.3 fL Normal 7.4-10.4 Abs Neutrophils 4.4 10^3/uL Normal 1.5-7.7 Abs Lymphocytes 2.3 10^3/uL Normal 1.0-4.8 Abs Monocytes 0.3 10^3/uL Normal 0-0.8 Abs Eosinophils 0.2 10^3/uL Normal 0-0.6 Abs Basophils 0.0 10^3/uL Normal 0-0.2 Abs Nucleated RBC 0.0 10^3/uL Granulocyte % 60.7 % Lymphocyte % 32.0 % Monocyte % 4.8 % Eosinophil % 2.1 % Basophil % 0.4 % Nucleated Red Blood Cells % 0.3 Laboratory 11/13/2018 [facility] TSH (Thyroid 2.79 Normal 0.34 -5.60 test finding [address] Stim Horm) mcIU/[place] [address] [phone] Comp Metabolic 11/13/2018 [facility] Sodium 138 mmol/L Normal 135-[address] [place] [address] [phone] Potassium 4.3 mmol/L Normal 3.5-5.0 Chloride 105 mmol/L Normal 101-111 Co2 Carbon Dioxide 26 mmol/L Normal 22-32 Anion Gap 7 mmol/L Normal 2-11 Glucose 84 mg/dL Normal 70-100 Blood Urea Nitrogen 12 mg/dL Normal 6-24 Creatinine 0.71 mg/dL Normal 0.51-0.95 BUN/Creatinine Ratio 16.9 Normal 8-20 Calcium 9.1 mg/dL Normal 8.6-10.3 Total Protein 7.0 g/dL Normal 6.4-8.9 Albumin 4.2 g/dL Normal 3.2-5.2 Globulin 2.8 g/dL Normal 2-4 Albumin/Globulin Ratio 1.5 Normal 1-3 Total Bilirubin 0.40 mg/dL Normal 0.2-1.0 Alkaline Phosphatase 73 U/L Normal 34-104 Alt 20 U/L Normal 7-52 Ast 18 U/L Normal 13-39 Egfr Non- 93.1 >60 Egfr 112.7 >60 3 1 [id number] 2 SEE RESULT BELOW Name: CELESTE MUNOZ : [address]: Yuriy House MD Acct: [id number] Unit: [id number] AGE: 37 Location: [facility] Re11/26/18 SEX: F Status: DEP ER SPEC: [id number] MARISOL: 11/26/18-17[address] [facility] DR: Yuriy House MD REQ: [id number] RECD: 11/27/18 STATUS: ROBERT STEPHENSON DR: Delio Herring PHARMACIST ASSISTANT _ SOURCE: URINE SPDESC: ORDERED: Urine Culture COMMENTS: [id number] Procedure Result Reported Site Urine Culture Final 11/28/18- 0934 ML No growth of clinically significant organisms * ML - Main Lab . END OF REPORT DEPARTMENT OF PATHOLOGY, [address] [place] [address] Vivek Escobar M.D. Director [facility] # [id number] 3 Because ethnic data is not always [...] 15-29 5 Kidney failure <15 (or dialysis) Procedures Date Code Description Status 02/19/2019 63871 Polysomnography Sleep Staging 4+ Parameters Completed Medical Devices Description No Information Available Encounters Type Date Location Provider Dx Diagnosis Office Visit 01/19/2019 Pulmonology And Sylvie Villavicencio, G47.9 Sleep disorder, 2:30p Sleep Services Of unspecified [facility] R53.83 Other fatigue G47.00 Insomnia, unspecified Office Visit 12/03/2018 12:10p [facility] Internal Kat Irvin, L23.7 Allergic contact Medicine - [facility] Nati dermatitis due to plants, except food R03.0 Elevated blood-pressure reading, w/o diagnosis of htn Office Visit 11/13/2018 9:20a [facility] Internal Delio Herring, G47.00 Insomnia, Medicine - [facility] PHARMACIST ASSISTANT unspecified G43.109 Migraine with aura, not intractable, w/o status migrainosus R14.0 Abdominal distension (gaseous) R40.0 Somnolence J30.89 Other allergic rhinitis Assessments Date Code Description Provider 05/04/2019 J01.90 Acute sinusitis, unspecified Darya Shavonne, N.P. 05/04/2019 J30.9 Allergic rhinitis, unspecified Darya Varn, N.P. 02/19/2019 G47.33 Obstructive sleep apnea (adult) (pediatric) Sylvie Villavicencio MD 01/19/2019 G47.9 Sleep disorder, unspecified Sylvie Villavicencio MD 01/19/2019 R53.83 Other fatigue Sylvie Villavicencio MD 01/19/2019 G47.00 Insomnia, unspecified Sylvie Villavicencio MD 12/03/2018 L23.7 Allergic contact dermatitis due to plants, Kat Irvin M.D. except food 12/03/2018 R03.0 Elevated blood-pressure reading, without Kat Irvin M.D. diagnosis of hypertension 11/13/2018 G47.00 Insomnia, unspecified Delio Herring NP 11/13/2018 G43.109 Migraine with aura, not intractable, without Delio Herring NP status migraino 11/13/2018 R14.0 Abdominal distension (gaseous) Delio Herring NP 11/13/2018 R40.0 Somnolence Delio Herring NP 11/13/2018 J30.89 Other allergic rhinitis Delio Herring NP Plan of Treatment Future Appointment(s):05/05/2019 9:00 am - Belkis Minaya NP at [facility]05/04/2019 - Darya Marvin N.P.J01.90 Acute sinusitis, unspecifiedNew Medication:Azithromycin 250 mg - two tabs day one, one daily till goneComments:For your sinus infection: I sent a prescription to the pharmacy for Azithromycin. Take 2 tablets thefirst day then 1 tablet daily until they are gone for a total of 5 days. I have changed your antihistamine and steroid nasal sprays to see if you can control your symptoms better.J30.9 Allergic rhinitis, unspecifiedComments:I am referring you to an certification and selection specialist for further evaluation , Dr Ortiz.Referral:Taras Ortiz MD, Allergy & Immunology Functional Status Description No Information Available Mental Status Description No Information Available Referrals Refer to Reason for Referral Status Appt Date Taras Ortiz MD Patient with chronic sinus congestion and Created drainage referred for allergy screening. Thank you for seeing this pleasant patient. [address] [place] [address] [phone] [facility] Sent 01/19/2019 [address] [place] [address] [phone]
--- OUTSIDE RECORDS SUMMARY | 2019-05-10 14:53 | XMS REPORT | Continuity of Care Document ---
:1980 External Reference #:[id number] Author Name Belkis Minaya NP (transmitted by agent of provider Gemini Bower) Address [address], [address] [place] [address] Care Team Providers Name Role Phone Glenis Neumann MD - Obstetrics & Care Team Information Vending Manager [phone] Gynecology Delio Herring NP - Internal Medicine Care Team Information Vending Manager Problems Active Problems Provider Date Uterine leiomyoma Felix Christianson M.D.,FACP Onset: 06/19/2015 Hypothyroidism Felix Christianson M.D.,FACP Onset: 06/19/2015 Mixed hyperlipidemia Felix Christianson M.D.,FACP Onset: 07/28/2015 Dyssomnia Melonie Shah DNP, RN, [employer] Onset: 08/18/2015 Snoring Melonie Shah DNP RN, [employer] Onset: 08/18/2015 Periodic leg movements of sleep Melonie Shah DNP RN, [employer]-BC Onset: 08/17 Social History Type Date Description Comments Sex Unknown Cigarette Use Quit - Age 31 ETOH Use 06/19/2015 Rarely consumes alcohol Tobacco Use Start: Unknown End: Patient is a former 1 pack every 4 days Unknown smoker X 5 years. Quit 6 years ago. 2011 Recreational Drug Use Denies Drug Use Smoking Status Reviewed: 05/05/19 Patient is a former 1 pack every 4 days smoker X 5 years. Quit 6 years ago. 2011 Exercise Type/Frequency Exercises regularly Allergies, Adverse Reactions, Alerts Active Allergies Reaction Severity Comments Date Penicillin hives, itchy, and trouble swallowing 06/19/2015 Medications Active Medications SIG Qnty Indications Ordering Date Provider Azithromycin two tabs day one, 6tabs J01.90 Darya Shavonne, 05/04/2019 250mg one daily till N.P. Tablets gone Nasonex use 2 sprays in 17gm J30.89 Darya Marvin, 05/04/2019 50mcg/Act each nostril once N.P. Suspension daily until you feel better, then 1 spray in each nostril once daily Cetirizine HCL 1 by mouth every 30tabs J30.89 Darya Marvin, 05/04/2019 10mg day N.P. Tablets Seroquel Not Using Due To 60tabs G47.00 [...] days 1 tab daily x 3 days Omeprazole Take 1 Capsule By 30caps K29.60 Delio Herring NP 11/16/2018 - 20mg Mouth Every Day 05/04/[address] For 1 Month as Directed Fluticasone [place] 2 Sprays 16units J30.89 Delio Herring NP 11/13/2018 - Propionate Into Each Nostril 05/04/2019 50mcg/Act Every Day Suspension Medications Administered in Office Medication SIG Qnty Indications Ordering Provider Date Tetanus,Unspecified Unknown 12/04/2016 Injection Immunizations Description No Information Available Vital Signs Date Vital Result Comment 05/05/2019 8:35am Height 64 inches 5'4" Weight 240.00 lb Heart Rate 71 /min BP Systolic 138 mmHg BP Diastolic 88 mmHg O2 % BldC Oximetry 99 % BMI (Body Mass Index) 41.2 kg/m2 05/04/2019 1:52pm Height 64 inches 5'4" Weight 240.25 lb Heart Rate 81 /min BP Systolic Sitting 140 mmHg BP Diastolic Sitting 90 mmHg Body Temperature 97.6 F O2 % BldC Oximetry 95 % BMI (Body Mass Index) 41.2 kg/m2 Results Test Acquired Date Facility Test Result H/L Range Note Urine Culture And 11/26/2018 [facility] Urine SEE RESULT 1 , [address] [place] [address] [phone] CBC Auto Diff 11/13/2018 [facility] White Blood 7.3 Normal 3.5 -10.[address] Count 10^3/[place] [address] [phone] Red Blood Count 5.29 10^6/uL High 3.70-4.87 [...] Red Blood Cells % 0.3 Laboratory 11/13/2018 [facility] TSH (Thyroid 2.79 Normal 0.34 -5.60 test finding [address] Stim Horm) mcIU/[place] [address] [phone] Comp Metabolic 11/13/2018 [facility] Sodium 138 mmol/L Normal 135-[address] [place] [address] [phone] Potassium 4.3 mmol/L Normal 3.5-5.0 Chloride 105 [...] 93.1 >60 Egfr 112.7 >60 3 1 [id number] 2 SEE RESULT BELOW Name: CELESTE MUNOZ : [address]: Yuriy House MD Acct: [id number] Unit: [id number] AGE: 37 Location: [facility] Re11/26/18 SEX: F Status: DEP ER SPEC: [id number] MARISOL: 11/26/18-[address]: Yuriy House MD REQ: [id number] RECD: 11/27/18 STATUS: ROBERT STEPHENSON DR: Delio Herring DUCT INSTALLER _ SOURCE: URINE SPDESC: ORDERED: Urine Culture COMMENTS: [id number] Procedure Result Reported Site Urine Culture Final 11/28/18- 0934 ML No growth of clinically significant organisms * ML - Main Lab . END OF REPORT DEPARTMENT OF PATHOLOGY, [address] [place] [address] Vivek Escobar M.D. Director [facility] # [id number] 3 Because ethnic data is not always [...] dialysis) Procedures Date Code Description Status 02/19/2019 95514 Polysomnography Sleep Staging 4+ Parameters Completed Medical Devices Description No Information Available Encounters Type Date Location Provider Dx Diagnosis Office Visit 05/05/2019 [facility] And Belkis G47.33 Obstructive sleep 9:00a [facility] ap[facility] (adult) [facility] (pediatric) G47.00 Insomnia, unspecified Office Visit 01/19/2019 2:30p [facility] Sylvie G47.9 Sleep disorder, [facility] unspecified Caddy Packer R53.83 Other fatigue G47.00 Insomnia, unspecified Office Visit 12/03/2018 12:10p [facility] Internal Kat Irvin, L23.7 Allergic contact Medicine - Ccmob M.D. dermatitis due to plants, except food R03.0 Elevated blood-pressure reading, w/o diagnosis of htn Office Visit 11/13/2018 9:20a [facility] Internal Delio Herring, G47.00 Insomnia, Medicine - Ccmob DUCT INSTALLER unspecified G43.109 Migraine with aura, not intractable, w/o status migrainosus R14.0 Abdominal distension (gaseous) R40.0 Somnolence J30.89 Other allergic rhinitis Assessments Date Code Description Provider 05/05/2019 G47.33 Obstructive sleep apnea (adult) (pediatric) Belkis Minaya NP 05/05/2019 G47.00 Insomnia, unspecified Belkis Minaya NP 05/04/2019 J01.90 Acute sinusitis, unspecified Darya Marvin, N.P. 05/04/2019 J30.9 Allergic rhinitis, unspecified Darya Marvin, N.P. 02/19/2019 G47.33 Obstructive sleep apnea (adult) [...] 11/13/2018 G43.109 Migraine with aura, not intractable, Delio Herring NP without status migraino 11/13/2018 R14.0 Abdominal distension (gaseous) Delio Herring NP 11/13/2018 R40.0 Somnolence Delio Herring NP 11/13/2018 J30.89 Other allergic rhinitis Delio Herring NP Plan of Treatment Future Appointment(s):06/25/2019 2:30 pm - Belkis Minaya NP at [facility]05/05/2019 - Belkis Minaya NPG47.33 Obstructive sleep apnea (adult) (pediatric)Follow up:6 weeksRecommendations:You are being set up with CPAP for your sleep apnea through [facility] . They will call you to set up an appointment to get fit for a mask and picker box operator your machine. If you have difficulty with your equipment, or need to replace your mask or hoses, please contact your homecare agency. If you have any further questions, please call the [facility] at Ifyou have any sleepiness while driving you MUST avoid operating a vehicle or machinery. If you feel tired while driving bone puller and take a nap or switch drivers. If you know you are sleepy and need togo somewhere, arrange for a ride or use public transportation. It is very important to not risk yoursafety or the safety of others.G47.00 Insomnia, unspecified Functional Status Description No Information Available Mental Status Description No Information Available Referrals Refer to Reason for Referral Status Appt Date Taras Ortiz MD Patient with chronic sinus congestion and Created drainage referred for allergy screening. Thank you for seeing this pleasant patient. [address] [place] [address] [phone] [facility] Sent 01/19/2019 [address] [place] [address] [phone]
--- NOTE | 2019-05-10 15:19 | UC ---
Skin Complaint HPI - HPI Summary HPI Summary: 38 yo female presents with rash. She tells me that this morning her daughter noticed a rash under pt's arms. Rash is mildly itchy, but is otherwise not bothersome and pt states she wouldn't have noticed this if it wasn't pointed out to her. She did have a dx of "sinus infection" last week and was placed on zpak - has had this in the past without issue. She has not had any new medications, clothing, detergents, perfumes, or environmental exposures. Denies fever, chills, SOB, cough, chest pain, n/v. - History of Current Complaint Chief Complaint: UCAllergicReaction Time Seen by Provider: 05/10/19 15:19 Stated Complaint: RASH Hx Obtained From: Patient Hx Last Menstrual Period: last year, Jan 22 Onset/Duration: Sudden Onset Current Severity: None Pain Intensity: 0 - Allergy/Home Medications Allergies/Adverse Reactions: Allergies Allergy/AdvReac Type Severity Reaction Status Date / Time Penicillins Allergy Severe Swelling Verified 11/29/18 07:44 Of Face,Lips,& Throat PMH/Surg Hx/FS Hx/Imm Hx GI/ History: Gastroesophageal Reflux - Surgical History Surgical History: Yes Surgery Procedure, Year, and Place: tubal ligation. d&c. partial hysterectomy - Family History Known Family History: Positive: Hypertension, Non-Contributory - Social History Lives: With Family Alcohol Use: None Substance Use Type: None Smoking Status (MU): Never Smoked Tobacco When Did the Patient Quit Smoking/Using Tobacco: 6 years ago - Immunization History Most Recent Influenza Vaccination: none Most Recent Pneumonia Vaccination: none Review of Systems All Other Systems Reviewed And Are Negative: No Constitutional: Positive: Negative Skin: Positive: Rash Respiratory: Positive: Negative Cardiovascular: Positive: Negative Neurological: Positive: Negative Psychological: Positive: Negative Physical Exam - Summary Physical Exam Summary: GENERAL: NAD. WDWN. No pain distress. SKIN: B/L axilla, uppers arms, and forearms - with flat mildly erythematous rash worse on medial upper arms. No urticaria, abscess, induration, open wound, drainage, streaking. NECK: Supple. Nontender. No lymphadenopathy. CHEST: No accessory muscle use. Breathing comfortably and in no distress. CV: Pulses intact. Cap refill <2seconds NEURO: Alert. PSYCH: Age appropriate behavior. Triage Information Reviewed: Yes Vital Signs: Initial Vital Signs Temp 98.3 F 05/10/19 15:00 Pulse 80 05/10/19 15:00 Resp 18 05/10/19 15:00 BP 180/107 05/10/19 15:00 Pulse Ox 98 05/10/19 15:00 Vital Signs: Temp Pulse Resp BP Pulse Ox 98.3 F 80 18 150/98 98 05/10/19 15:00 05/10/19 15:00 05/10/19 15:00 05/10/19 15:46 05/10/19 15:00 Vital Signs Reviewed: Yes Course/Dx - Course Course Of Treatment: Unsure the cause of her rash, but it appears contact related as it is nearly symmetrical on b/l upper extremities without indication of infectious process. Will start her on prednisone and have her take a bendaryl daily. Recheck if symptoms worsen or do not improve within 2 days. - Diagnoses Provider Diagnosis: Rash Discharge ED - Sign-Out/Discharge Documenting (check all that apply): Patient Departure All imaging exams completed and their final reports reviewed: No Studies - Discharge Plan Condition: Stable Disposition: HOME Prescriptions: predniSONE 20 mg TAB [Deltasone 20 MG TAB*] 20 mg PO DAILY #12 tab Patient Education Materials: Acute Rash (ED) Referrals: Delio Herring SACK SEWER MACHINE [Primary Care Provider] - Additional Instructions: Your blood pressure was high at todays visit. Please see your primary provider within 4 weeks for recheck and re-evaluation. - Take prednisone exactly as prescribed until gone - starting tomorrow - Okay to take Benadryl 25mg every 6 hours as needed for itching and hives and redness. This medication may cause drowsiness - do NOT drive, operate machinery or drink alcohol while taking Benadryl -Avoid getting over-heated (hot showers, hot tubs, exercise) for at least 48 hours - Try to avoid aspirin, NSAIDs (Motrin, Aleve, Naprosyn) for 2-3 days - Okay to apply cool compresses to the area -Contact your doctor or return here with questions or concerns - Billing Disposition and Condition Condition: STABLE Disposition: Home - Attestation Statements Provider Attestation: This patient was not seen by me. I was available for consult. Chart reviewed ANETA
[2019-05-10] MEDS ORDERED: Dexamethasone TAB* 4 MG PO ONE (15:27)
[2019-05-10 15:47] VITALS: BP 150/98
== END 2019-05-10 15:55 | disposition home or self-care (01) ==
LOC: UCEAST 14:47
DX: R21 Rash and other nonspecific skin eruption (principal); Z88.0 Allergy status to penicillin
CPT/HCPCS: 99212; G0463; J8540

== ENCOUNTER 2021-02-06 05:29 | Inpatient (IN) ==
[2021-02-06] MEDS ORDERED: Buffered Lidocaine 1% SYRIN 1 ml INTRADERM ONE (06:00)
[2021-02-06] MEDS ORDERED: Lactated Ringers 1000 ml BAG 1,000 ML IV SCH (06:00)
[2021-02-06] MEDS ORDERED: Heparin 5000 UNITS/ML 1 mL VIAL ONE (06:09)
[2021-02-06] MEDS ORDERED: Clindamycin 900 MG/D5W BAG 900 MG/50 ML BAG IVPB ONE (06:09)
[2021-02-06] MEDS ORDERED: Lidocaine 2% PF 5 ML VIAL ONE ×2 (06:52→11:03)
[2021-02-06] MEDS ORDERED: Sevoflurane BOTTLE ONE ×2 (06:52→11:03)
[2021-02-06] MEDS ORDERED: Bupivacaine 0.5% SDV PF 30ML VIAL ONE (07:00)
[2021-02-06] MEDS ORDERED: Lidocaine 1% w EPI 1:200,000 SDV 30 ML VIAL ONE (07:00)
[2021-02-06] MEDS ORDERED: Rocuronium 50 mg VIAL 10 mg/ml 5 ml VIAL (50 mg) ONE ×2 (07:01→11:03)
[2021-02-06] MEDS ORDERED: fentaNYL 250 mcg/5 ml 50 MCG/ML 5 ml VIAL (250 MCG) ONE ×2 (07:01→11:03)
[2021-02-06] MEDS ORDERED: Midazolam 2 mg/2 ml VIAL 1 mg/ml 2 ml VIAL (2 mg) ONE ×2 (07:02→11:03)
[2021-02-06] MEDS ORDERED: Propofol 10 MG/ML 20 ML BTL ONE ×5 (07:03→11:03)
[2021-02-06] MEDS ORDERED: Ondansetron 4 mg VIAL 2 MG/ML 2 ml VIAL ONE (08:17)
[2021-02-06] MEDS ORDERED: Dexamethasone IV 4 MG/ML VIAL 1 ml VIAL ONE (08:17)
[2021-02-06] MEDS ORDERED: EPHEDrine (Pressors) 50 MG/ML VIAL ONE (08:19)
[2021-02-06] MEDS ORDERED: fentaNYL 100 mcg/2 ml 50 MCG/ML VIAL IV PRN (08:31)
[2021-02-06] MEDS ORDERED: DiMENhydriNATE IV 50 mg/ml 1 ml VIAL IV PUSH PRN (08:31)
[2021-02-06] MEDS ORDERED: diPHENhydraMINE IV 50 MG/ML 1 ml VIAL (BENADRYL) IV PRN (08:31)
[2021-02-06] MEDS ORDERED: Naloxone 0.4 mg VIAL 0.4 mg/ml 1 ml VIAL IV PRN (08:31)
[2021-02-06] MEDS ORDERED: Acetaminophen IV 1 GM/100ML 100 ML IV ONE (08:38)
[2021-02-06] MEDS ORDERED: Phenylephrine 40 mcg/mL 10mL (400mcg) SYRINGE ONE (08:40)
[2021-02-06] MEDS ORDERED: HYDROmorphone 1 MG/1 ML SYRINGE ONE ×3 (09:17→11:03)
[2021-02-06] MEDS ORDERED: HYDROcodone/ACET. 7.5/325 LIQ 15 ML UDC PO PRN (10:03)
[2021-02-06] MEDS ORDERED: Ondansetron 4 mg VIAL 2 MG/ML 2 ml VIAL IV PRN (10:03)
[2021-02-06] MEDS: HYDROmorphone 1 MG/1 ML SYRINGE IV PRN ×3 (10:41→11:01)
[2021-02-06] MEDS: Lactated Ringers 1000 ml BAG 1,000 ML IV SCH ×2 (11:53→19:21)
[2021-02-06] MEDS: HYDROmorphone 0.5 MG/0.5 ML SYRINGE IV SLOW PU PRN (19:19)
[2021-02-06] MEDS: Heparin 5000 UNITS/ML 1 mL VIAL SUBCUT SCH (21:31)
[2021-02-07] MEDS: HYDROmorphone 0.5 MG/0.5 ML SYRINGE IV SLOW PU PRN (00:22)
[2021-02-07] MEDS: Lactated Ringers 1000 ml BAG 1,000 ML IV SCH (02:05)
[2021-02-07] MEDS: Heparin 5000 UNITS/ML 1 mL VIAL SUBCUT SCH ×2 (05:50→14:48)
[2021-02-07] MEDS ORDERED: D5W 1/2 NS KCl 20 meq 1000 ml 1,000 ML IV SCH (11:00)
[2021-02-07 11:45] VITALS: BP 114/76
== END 2021-02-07 15:15 | disposition home or self-care (01) | DRG 403 ==
LOC: OR 05:29 → SSU 10:03
PROVIDERS: ADMIT Surgery; ATTEND Surgery